=== PATIENT | male | born 1930 | race Caucasian/White ===

== ENCOUNTER 2017-06-16 11:20 | Inpatient (IN) | payer MEDICARE, OTHER ==
[2017-06-16 11:41] LABS: HEMATOCRIT 43.2 % (42.0-54.0); HEMOGLOBIN 14.7 g/dL (13.5-17.5); MCH 30.8 pg (26.0-34.0); MCV 90.4 fL (80.0-100.0); MEAN PLATELET VOLUME 11.3 fL (7.4-10.4); PLATELET COUNT 140 10x3/uL (130-400); RBC 4.78 10x6/uL (4.20-6.10); RDW 15.4 % (11.5-14.5); WBC 10.6 10x3/uL (4.8-10.8)
[2017-06-16 11:56] LABS: ALBUMIN 3.8 g/dL (3.4-5.0); ALKALINE PHOSPHATASE 85 U/L (46-116); ALT (SGPT) 19 U/L (10-68); BILIRUBIN - TOTAL 0.76 mg/dL (0.2-1.3); CALC OSMOLALITY 281 mosm/kg (275-300); CALCIUM 9.5 mg/dL (8.5-10.1); CARBON DIOXIDE 31.5 mmol/L (21.0-32.0); CHLORIDE - SERUM 103 mmol/L (98-107); GLUCOSE 115 mg/dL (74-106); PROTEIN - SERUM 7.4 g/dL (6.4-8.2); SODIUM 140 mmol/L (136-145); UREA NITROGEN 18 mg/dL (7-18); eGFR NON AFRICAN AMERICAN 75 mL/min (90-120)
[2017-06-16 11:57] LABS: INR 1.34 (0.85-1.17); PROTIME 16.5 SECONDS (11.6-15.0)
[2017-06-16 12:03] LABS: EOSINOPHILS 1 % (0-7); LYMPHOCYTES 81 % (15-50); MONOCYTES 1 % (2-11); NEUTROPHILS 17 % (40-80); PLATELET ESTIMATE NORMAL
--- NOTE | 2017-06-16 15:00 | NUR ---
RECEIVED TO ROOM 2231 FROM ER VIA STRETCHER. SL TO L AC. R SIDED WEAKNESS NOTED. STATES THAT WEAKNESS STARTED AROUND 10 THIS MORNING. KNIK. HEARING AIDES IN USE. AT BEDSIDE.
[2017-06-16 15:12] VITALS: BMI 27.2
[2017-06-16] MEDS ORDERED: K-DUR20 MEQ PO (15:32)
[2017-06-16] MEDS ORDERED: OMEPRAZOLE40 MG PO (15:32)
[2017-06-16] MEDS ORDERED: PRADAXA150 MG PO (15:32)
[2017-06-16] MEDS ORDERED: LANOXIN125 MCG PO (15:32)
[2017-06-16] MEDS ORDERED: GABAPENTIN100 MG PO (15:33)
[2017-06-16] MEDS ORDERED: MIRALAX17 GM PO (15:33)
[2017-06-16] MEDS ORDERED: HYDROCODON-ACE1 EAC7 PO (15:34)
[2017-06-16] MEDS ORDERED: SEROQUEL25 MG PO (15:34)
[2017-06-16] MEDS ORDERED: ACETAMINOPHEN500 M1 PO (15:34)
[2017-06-16] MEDS ORDERED: CYMBALTA30 MG PO (15:35)
[2017-06-16] MEDS ORDERED: MELATONIN 3 MG1 TAB PO (15:35)
[2017-06-16] MEDS ORDERED: ARICEPT5 MG PO (15:36)
[2017-06-16] MEDS ORDERED: CENTRUM SILVER1 TA1 PO (15:36)
[2017-06-16 15:40] VITALS: BP 161/54; BMI 27.2
--- NOTE | 2017-06-16 16:13 | NUR ---
MAKE UP GIRL SHOWING PACED 60 PER TECH.
[2017-06-16 18:02] VITALS: BP 161/54
--- NOTE | 2017-06-16 19:27 | NUR ---
SPOKE WITH DR KOCH REGARDING CONSULT.
[2017-06-16 20:00] VITALS: BP 138/52
--- NOTE | 2017-06-16 21:00 | NUR ---
PATIENT TRANSFERED FROM THE BED TO THE BEDSIDE COMMODE WITH ASSISTANCE FROM 2 CNAS. HE SAT ON THE BEDSIDE COMMODE FOR ABOUT 5 MINUTES THEN REQUESTED TO GO BACK TO BED. HE DID NOT HAVE A BOWEL MOVEMENT. HE TRANSFERED BACK TO BED WITH ASSISTANCE FROM 2 CNAS. IN ROOM.
--- NOTE | 2017-06-16 21:29 | NUR ---
BROUGHT SCDS IN ROOM, EDUCATED PATIENT ON THE SCDS, HE STATED "THOSE ARE NOTHING NEW TO ME. AND I DO NOT WANT THEM, I REFUSE." TOOK SCDS OUT OF THE ROOM. PATIENT STATED HE WANTS TO GO TO SLEEP. HE TURNED TO HIS RIGHT SIDE INDEPENDENTLY. HE DENIES NEEDS. BED ALARM ON.
[2017-06-17] VITALS: BP 121/50
[2017-06-17 04:00] VITALS: BP 128/51
[2017-06-17 06:46] LABS: APPEARANCE CLEAR (CLEAR); BILIRUBIN NEGATIVE (NEGATIVE); COLOR YELLOW (YELLOW); GLUCOSE NEGATIVE (NEGATIVE); KETONE SMALL mg/dL (NEGATIVE); NITRITE NEGATIVE (NEGATIVE); PROTEIN NEGATIVE (NEGATIVE); SPECIFIC GRAVITY 1.015 (1.005-1.020); UROBILINOGEN NORMAL (NORMAL)
--- NOTE | 2017-06-17 07:40 | NUR ---
SITTING ON BEDSIDE, KARELY ALARM ON, DENIES NEEDS, AT BEDSIDE, CALL LIGHT IN REACH, WILL CONTINUE TO MONITOR
[2017-06-17 11:16] VITALS: BMI 27.1
[2017-06-17 13:15] VITALS: BP 140/80
[2017-06-17 16:33] VITALS: BP 138/62
--- NOTE | 2017-06-17 17:44 | NUR ---
PATIENT RESTING IN BED WITH GUEST AT BEDSIDE. ASSISTED KOBE MIMS IN REPOSITIONING PT IN BED. PT DENIES OTHER NEEDS AT THIS TIME. BED IN LOWEST POSITION AND CALL LIGHT WITHIN REACH. ENCOURAGED THE PT TO CALL IF HE HAS NEEDS.
[2017-06-17 20:00] VITALS: BP 132/42
[2017-06-18 00:18] VITALS: BP 134/71
[2017-06-18 04:34] VITALS: BP 136/70
--- NOTE | 2017-06-18 07:15 | NUR ---
RECEIVED REPORT. ASSUMED CARE OF PATIENT. CALL LIGHT WITHIN REACH. RESTING IN BED WITH EYES OPEN. RIGHT SIDE WEAKNESS NOTED TO RIGHT UPPER AND LOWER EXTREMITIY. SPEECH CLEAR. AT BEDSIDE. PATIENT EXERCISING HANDS WITH STRESS BALL AT THIS TIME. NO DISTRESS. DENIES NEEDS.
[2017-06-18 08:43] VITALS: BP 165/68
--- NOTE | 2017-06-18 11:21 | NUR ---
22 GAUGE IV PLACED TO LEFT WRIST X 1 STICK. GOOD BLOOD RETURN, EASY FLUSH. TAPED, DATED AND SECURED. TOLERATED IV PLACEMENT WELL. 20 GAUGE IV REMOVED FROM LEFT AC. PATIENT WAS COMPLAINING OF PAIN. CATHETER TIP INTACT. NO BLEEDING FROM SITE. 2X2 GAUZE APPLIED AND SECURED WITH TAPE. PATIENT HAPPY NOW THAT IV HAS BEEN MOVED TO DIFFERENT LOCATION.
[2017-06-18 11:51] VITALS: BP 148/61
--- NOTE | 2017-06-18 12:26 | NUR ---
REHAB PRESCREEN: MR SCHMIDT WOULD BE A GOOD CANDIDATE FOR INPATIENT REHAB, HE DOES NEED AN A LITTLE MORE THERAPY TO QUALIFY AT THIS TIME. WE WILL FOLLOW UP WITH HIM IN A COUPLE DAYS AND REEVAL THEN. HE WILL ALSO NEED A OT EVAL. THANK YOU FOR THIS EVAL. JUANCARLOS PARIS LPN CLINICAL LIASION
--- NOTE | 2017-06-18 15:45 | NUR ---
ASSISTED TO PLACING PATIENT TO BED SIDE COMMODE. NO BM AFTER DRINKING ENTIRE BOTTLE OF MAGNESIUM CITRATE. ASSISTED PATIENT BACK TO BED.
[2017-06-18 16:49] VITALS: BP 139/60
--- NOTE | 2017-06-18 18:11 | NUR ---
PATIENT RESTING IN BED WITH EYES CLOSED. AT BEDSIDE. PATIENT IS EASILY AROUSED. DENIES NEEDS AT THIS TIME. CALL LIGHT WITHIN REACH. NO DISTRESS.
--- NOTE | 2017-06-18 19:40 | NUR ---
NOTIFIED BY RT THAT PT WAS LOOKING FOR THE NURSE ASSIGNED TO HIM. UPON ENTERING PT'S ROOM HE HAD DROPPED HIS HEARING AID ON THE FLOOR AND COULD NOT FIND HIS CALL LIGHT. I PUT PT'S HEARING AID X2 IN THE CASE PER PT'S REQUEST AND PUT HIS CALL LIGHT WITHIN REACH. PT DENIES OTHER NEEDS AT THIS TIME. BED IN LOWEST POSITION, CALL LIGHT WITHIN REACH, AND BED ALARM ON. ENCOURAGED THE PT TO CALL IF HE HAS NEEDS.
[2017-06-18 20:00] VITALS: BP 119/60
[2017-06-19] VITALS: BP 138/67
[2017-06-19 08:12] VITALS: BP 154/66
--- NOTE | 2017-06-19 09:05 | NUR ---
REC'D IN BED AWAKE AND ALERT. RESP EVEN AND UNLABORED WITH NO DISTRESS NOTED. CAN EXPRESS NEEDS AND WANTS. NO C/O NOTED OR VOICED. ASSESSMENT COMPLETED. AT BEDSIDE. V/L IN REACH
--- NOTE | 2017-06-19 09:40 | NUR ---
Patient Name: SANDOVAL SCHMIDT Admission Status: ER Accout number: [id number] Admission Date: 06-16-2017 : 1930 Admission Diagnosis: Attending: LIN GIPSON Current LOS: 3 Anticipated DC Date: 06-20-2017 Planned Disposition: Inpatient Rehab Primary Insurance: MEDICARE A & B Discharge Planning Comments: CM MET WITH PATIENT AND (GLENN) REGARDING D/C NEEDS AND PLANS. PATIENT WAS WORKING WITH PT AND ANSWERED QUESTIONS. PATIENTS STATED THEY HAVE NO STEPS OR STAIRS AT THEIR HOME. PATIENT IS INDEPENDENT WITH HIS CARE AND HAS A WALKER, SHOWER CHAIR, BS COMMODE, AND LIFT IN TUB AT HOME. PATIENTS HELPS HIM WITH HIS MEDICATION. PATIENTS PCP IS DR. CAMACHO AND PHARMACY IS [facility] [address]. PATIENT HAS A CONSULT FOR IP REHAB. CM WILL CONTINUE TO FOLLOW PATIENT WITH D/C NEEDS AND PLANS. PCP DR. ENGLISH ZHANG [facility] [address] [facility]- [phone] GLENN () [phone] Solar Energy Installation Manager: Sarai Wright Is the patient Alert and Oriented? Yes 0 * How many steps to enter\exit or inside your home? 0 0 * PCP DR. CAMACHO 0 * Pharmacy [facility] [address] [facility] 0 * Preadmission Environment Home with Family 0 * ADLs Independent 0 * Equipment Bedside Commode Shower Chair Walker 0 * Other Equipment LIFT IN BATHTUB 0 * List name and contact numbers for known caregivers / representatives who currently or will assist patient after discharge: GLENN () [phone] 0 * Community resources currently utilized None 0 * Additional services required to return to the preadmission environment? Yes 0 * Can the patient safely return to the preadmission environment? No 0 * Has this patient been hospitalized within the prior 30 days at any hospital? No 0 Grand Total: 0
[2017-06-19 12:34] VITALS: BP 131/54
--- NOTE | 2017-06-19 15:08 | NUR ---
NUTRITION F/U CHART REVIEWED. PT VISIT. SPOUSE AT BEDSIDE. ASSISTED SPOUSE ON MENU SELECTIONS FOR PT. CURRENTLY ~ 75% INTAKE AHA DIET. WILL CONTINUE TO PROVIDE DIET, MONITOR PO INTAKE. RD FOLLOWING
[2017-06-19 17:04] VITALS: BP 147/56
[2017-06-19] MEDS ORDERED: ASPIRIN325 MG PO (17:56)
--- NOTE | 2017-06-19 17:58 | NUR ---
OT NOTE: PT COMPLETED BED MOB WITH CGA. THANK YOU, DIANE HALL
--- NOTE | 2017-06-19 18:04 | NUR ---
PT WAS DISCHARGE DOWN TO REHAB AT THIS TIME WITH PERSONAL BELONGS VIA W/C. WAS IN STABLE CONDITION UPON DEPARTURE. C/L IN REACH AT BEDSIDE.
--- NOTE | 2017-06-20 16:42 | EC ---
PATIENT:SANDOVAL SCHMIDT DATE OF SERVICE: 06/16/17 SEX: M MEDICAL RECORD: [id number] DATE OF : 30 LOCATION:[facility] AGE OF PATIENT: 86 ADMISSION DATE: 06/16/17 REFERRING PHYSICIAN: INTERPRETING PHYSICIAN: RENATA GRAMAJO MD ECHOCARDIOGRAM REPORT ECHO CHARGES 4 ECHO COMPLETE CLINICAL DIAGNOSIS: CVA HX CAD/CABG/PACER/HTN ECHOCARDIOGRAPHIC MEASUREMENTS (adult normal given) AC root (d.<3.7cm) 3.9 cm LV Septum d (<1.2 cm> 1.6 cm Valve Excursion 1.3 cm LV Septum (systole) 1.8 cm Left Atria (s.<4.0cm> 3.7 cm LVPW d(<1.2cm) 1.3 cm RV (d.<2.3cm) 3.3 cm LVPW (sytole) 1.7 cm LV diastole(<5.6CM) 6.3 cm MV E-F(>70mm/sec) cm LV systole 4.6 cm LVOT Diameter 1.5 cm MV exc.(>10mm) 1.6 cm Est.ejection fraction (50-75%) % Pericardial Effusion N DOPPLER: LVIT cm/sec A 35.0 cm/sec E 97.0 cm/sec LA cm/sec RVSP 23 mmHg LVOT 93 cm/sec AOP1/2T m/s Asc. Ao 180 cm/sec RVOT 105 cm/sec RA cm/sec PA 147 cm/sec AV Gradient Peak 12.98mmHg AV Mean 6.23 mmHg AV Area 1.2 cm MV Gradient Peak 6.10 mmHg MV Mean 2.33 mmHg MV Area cm COMMENTS: Card Punching Machine Operator: Guanaco [employer] Technician: 1 Dr. Gramajo TAPE# PACS DATE OF SERVICE: 06/17/2017 DATE OF SERVICE: 06/17/2017 FINDINGS: 1. Left ventricular chamber size is within normal limits. Left ventricular systolic function is normal. Overall ejection fraction is estimated at 50%. 2. Left atrium, right atrium, and right ventricle chamber sizes are within normal limits. Left atrium measures 3.7 cm. 3. Valvular structures have normal structure and motion. ECHOCARDIOGRAM REPORT [id number] SANDOVAL SCHMIDT 4. Doppler interrogation reveals only trace to mild mitral regurgitation, trace to mild tricuspid regurgitation, no other valvular insufficiency or stenosis. Pulmonary systolic pressure is normal estimated at 23 mmHg. 5. No evidence of pericardial effusion or left ventricular thrombus. TRANSINT:[id number] Voice Confirmation ID: [id number] DOCUMENT ID: [id number] RENATA GRAMAJO MD at 1642 CC: [id number] DICTATION DATE: 06/18/17 1107 PIPED BUTTONHOLE MACHINE OPERATOR: 06/18/17 1437 DIS IN 06/19/17 [id number] [place] [address]
== END 2017-06-19 18:26 | DRG 65 ==
LOC: D.ER 11:20 → D.MS 14:36
PROVIDERS: Emergency Medicine; ADMIT Family Medicine
DX: I63.512 Cerebral infarction due to unspecified occlusion or stenosis of left middle cerebral artery (principal); G81.91 Hemiplegia, unspecified affecting right dominant side; G62.9 Polyneuropathy, unspecified; I10 Essential (primary) hypertension; I48.91 Unspecified atrial fibrillation; F03.90 Unspecified dementia, unspecified severity, without behavioral disturbance, psychotic disturbance, mood disturbance, and anxiety; K21.9 Gastro-esophageal reflux disease without esophagitis; K59.00 Constipation, unspecified; Z95.0 Presence of cardiac pacemaker; Z87.891 Personal history of nicotine dependence

== ENCOUNTER 2017-06-19 17:15 | Inpatient (IN) | payer MEDICARE, OTHER ==
[~2017-06-19] VITALS: Ht 182.9 cm; Wt 88.5 kg
[~2017-06-19 17:15] MED LIST: ACETAMINOPHEN500 M1 PO; ARICEPT5 MG PO; CENTRUM SILVER1 TA1 PO; CYMBALTA30 MG PO; GABAPENTIN100 MG PO; HYDROCODON-ACE1 EAC7 PO; K-DUR20 MEQ PO; LANOXIN125 MCG PO; MELATONIN 3 MG1 TAB PO; MIRALAX17 GM PO; OMEPRAZOLE40 MG PO; PRADAXA150 MG PO; SEROQUEL25 MG PO
[2017-06-19] MEDS ORDERED: ASPIRIN325 MG PO (17:56)
[2017-06-19 18:32] VITALS: BP 125/53; BMI 26.5
--- NOTE | 2017-06-19 19:50 | NUR ---
PT IN BED WITH HOB UP FOR COMFORT. RESTING QUIETLY. RIGHT SIDE WEAKNESS. COUNCIL, HEARING AIDS. NO O2. LEFT WRIST SL. PACEMAKER. CONTINENT. KARELY ALARM. BED IN LOWEST POSITION AND CALL LIGHT WITHIN REACH.
--- NOTE | 2017-06-19 20:00 | NUR ---
PT. IN BED LYING ON HIS LEFT SIDE. EYES CLOSED AND RESP. EVEN. CALL LIGHT WITHIN REACH.
[2017-06-19 20:34] VITALS: BP 128/53
--- NOTE | 2017-06-20 | NUR ---
PT IN BED WITH HOB UP FOR COMFORT. EYES CLOSED. CHEST RISING AND FALLING. BED IN LOWEST POSITION AND CALL LIGHT WITHIN REACH.
--- NOTE | 2017-06-20 02:31 | NUR ---
RESTING IN BED WITH EYES CLOSED. NO S/S OF DISTRESS OBSERVED. URINAL IN REACH. CALL LIGHT AND OVERBED TABLE IN REACH.
--- NOTE | 2017-06-20 04:00 | NUR ---
PT LYING IN BED WITH HOB UP FOR COMFORT. EYES CLOSED. RESP. EVEN. BED IN LOWEST POSITION AND CALL LIGHT WITHIN REACH.
[2017-06-20 05:05] LABS: BASOPHILS 0.3 % (0-2); EOSINOPHILS 3.8 % (0-7); HEMATOCRIT 40.3 % (42.0-54.0); HEMOGLOBIN 13.3 g/dL (13.5-17.5); IMMATURE GRANULOCYTES 0.2 % (0-5); LYMPHOCYTES 65.7 % (15-50); MCH 30.4 pg (26.0-34.0); MEAN PLATELET VOLUME 11.6 fL (7.4-10.4); MONOCYTES 6.9 % (2-11); NEUTROPHILS 23.1 % (40-80); PLATELET COUNT 140 10x3/uL (130-400); RBC 4.38 10x6/uL (4.20-6.10); RDW 15.7 % (11.5-14.5); WBC 6.5 10x3/uL (4.8-10.8)
[2017-06-20 05:55] LABS: CALC OSMOLALITY 286 mosm/kg (275-300); CALCIUM 9.3 mg/dL (8.5-10.1); CARBON DIOXIDE 29.9 mmol/L (21.0-32.0); CHLORIDE - SERUM 105 mmol/L (98-107); CREATININE - SERUM 0.8 mg/dL (0.6-1.3); GLUCOSE 107 mg/dL (74-106); POTASSIUM - SERUM 3.7 mmol/L (3.5-5.1); SODIUM 143 mmol/L (136-145); UREA NITROGEN 18 mg/dL (7-18); eGFR NON AFRICAN AMERICAN > 90 mL/min (90-120)
--- NOTE | 2017-06-20 07:31 | NUR ---
SITTING ON SIDE OF BED WITH PANTS PULLED DOWN. IN ROOM WITH PT. THEY WERE TRYING TO USE URINAL WHILE SITTING ON BEDSIDE. WHEN NURSE OFFERED TO ASST THEM PT BECAME VERY AGGITATED AND VERBALLY ABUSIVE TO NURSE. HE STARTED YELLING AND DOUBLED HIS FIST UP AND JACKELYN BACK AT NURSE. WHEN NURSE ATTEMPTED TO HELP PULL HIS PJ BOTTOMS UP AND REPOSITION PINK PAD UNDER HIM HE THREATENED NURSE VERBALLY STATING "WHEN I SAY I'M TIRED, I MEAN I'M TIRED". NURSE EXPLAINED TO PT AND THAT STAFF NEEDS PT COOPERATION TO GET HIM SAFELY UP IN BED TO SIT UP FOR BREAKFAST AND WE USE PINK PAD TO HELP SIT ADJUST HIS POSITION. HE STATED HE DID NOT CARE AND TO GET PAD AWAY FROM HIM. NURSE EXPLAINED TO PT AND HIS THAT PT USING THREATENING GESTURES AND THREATENING TO HARM STAFF WAS NOT ACCEPTABLE AND PT WOULD NOT BE ALLOWED TO STAY IF THIS HAPPENED. PT STATED UNDERSTANDING.
[2017-06-20 08:24] VITALS: BP 148/51
[2017-06-20 10:21] VITALS: Ht 182.9 cm; Wt 88.5 kg
--- NOTE | 2017-06-20 12:33 | NUR ---
SITTING IN W/C IN ROOM. IN ROOM WITH PT. HE REMAINS CONFUSED BUT NOT AGGRESSIVE AT PRESENT. HE HAS MADE STATEMENTS THIS MORNING SAYING "I HATE IT WHEN WOMEN TRY TO TELL ME WHAT TO DO".
--- NOTE | 2017-06-20 17:57 | NUR ---
SITTING UP EATING SUPPER. DENIES NEEDS. BED IN LOWEST POSITION.
--- NOTE | 2017-06-20 19:02 | NUR ---
RECIEVED UP IN BED WITH EYES OPEN. [place] AND DOESNT HAVE HEARING AIDES ON. ABLE TO UNDERSTAND IF I GET CLOSE UP AND SPEAK LOUD. DENIES ANY PAIN. CALL LIGHT AND OVERBED TABLE IN REACH.
--- NOTE | 2017-06-20 20:35 | NUR ---
RESTING IN BED WITH EYES OPEN. REQUESTED TO USE URINAL EARLIER AND WANTED TO SIT UP ON THE SIDE OF THE BED. ATTEMPTED TO ASK HIM IF HE COULD SIT UP IN BED. WHEN PT STARTED INTERRUPTING THIS NURSE AND THE AIDE. REFUSING TO LISTEN. EVENTUALLY GOT UP ON THE SIDE OF THE BED AND WAS UNABLE TO URINATE. TAKES MEDICATIONS WHOLE WOTHOUT DIFFICULTY. CALL LIGHT AND OVERBED TABLE IN REAC,
[2017-06-20 21:45] VITALS: BP 155/55
--- NOTE | 2017-06-21 00:23 | NUR ---
RESTING IN BED WITH EYES CLOSED. HOB ELEVATED AND O2@2 LITERS PER N/C IN PLACE. NO S/S OF DISTRESS OBSERVED. CALL LIGHT AND OVERBED TABLW IN REACH.
--- NOTE | 2017-06-21 00:29 | NUR ---
RESTING IN BED WITH EYES CLOSED AT THIS TIME. LAYING ON HIS BACK. BED IN FLAT POSITION PER PT PREFERENCE. CALL LIGHT AND OVERBED TABLE IN REACH. NO S/S OF DIDSTRESS OBSERVED.
--- NOTE | 2017-06-21 02:31 | NUR ---
RESTING IN BED WITH EYES CLOSED. N OS/S OF DISTRESS OBSERVED. URINAL IN REACH. CALL LIGHT AND OVERBED TABLE IN REACH.
--- NOTE | 2017-06-21 08:00 | NUR ---
SHIFT ASSMT COMPLETED.CL IN REACH. ATTENDING AT BEDSIDE.CL IN REACH.BREAKFAST GIVEN.
[2017-06-21 08:20] VITALS: BP 152/62
--- NOTE | 2017-06-21 12:00 | NUR ---
EATING LUNCH, ASSISTS WITH MEAL.
--- NOTE | 2017-06-21 14:20 | NUR ---
YELLING LOUDLY AT SPEECH THERAPY TO GET OUT.STATES HE DOES NOT WANT SPEECH THERAPY DUE TO FEELING IT DOES NOT HELP HIM AND FEELS IT IS STUPID.
--- NOTE | 2017-06-21 16:00 | NUR ---
RESTING QUIETLY.CL IN REACH.
--- NOTE | 2017-06-21 17:27 | NUR ---
CARE TEAM MEETING: PATIENT NEW TO UNIT AND WILL BE RA AT NEXT MEETING. DISCHARGE PLANS ARE FOR PATIENT TO RETURN HOME WITH HIS SPOUSE. WILL CONTINUE TO FOLLOW WITH PATIENT
--- NOTE | 2017-06-21 19:11 | NUR ---
RESTING IN BED WITH HANKERCHIEF COVERING EYES. EASILY AROUSES WITH TOUCH AND VERBAL STIMULI. CALL LIGHT AND OVERBED TABLE IN REACH.
[2017-06-21 19:52] VITALS: BP 144/53
--- NOTE | 2017-06-21 20:42 | NUR ---
RESTING IN BED WITH EYES CLOSED. EASILY AROUSES WITH VERBAL STIMULI. PLEASANT AND COOPERATIVE, VERY [place] AND NOT WEARING HEARING AIDS. CAN HEAR IF CLOSED TO EAR WHEN SPEAKING. TAKES MEDICATION WITHOUT DIFFICULTY. PAIN MEDICATION GIVEN EARLIER AND REPORTED IT MIKE SO MUCH BETTER AND DID'NT HURT WHEN HE USED IT. CALL LIGHT AND OVERBED TABLE IN REACH.
--- NOTE | 2017-06-21 22:34 | NUR ---
RESTING IN BED WITH EYES CLOSED. NO S.S OF DISTRESS OBSERVED.
[2017-06-22 07:53] VITALS: BP 139/60
--- NOTE | 2017-06-22 08:00 | NUR ---
RESTING QUIETLY IN BED. CALL LIGHT IN REACH. BED IN LOWEST POSITION.
[2017-06-22 19:30] VITALS: BP 124/53; BP 139/55
--- NOTE | 2017-06-22 19:30 | NUR ---
PT IN BED WITH HOB UP FOR COMFORT. RESTING QUIETLY. RIGHT SIDE WEAKNESS. [place], HEARING AIDS. NO O2. NO IV. PACEMAKER. CONTINENT. KARELY ALARM. BED IN LOWEST POSITION AND CALL LIGHT WITHIN REACH.
--- NOTE | 2017-06-22 21:00 | NUR ---
PATIENT BEING DIFFICULT AND UNCOOPERATIVE WITH NURSES Iliana DOYLE LPN AND MYRANDA RN WHO WERE ATTEMPTING TO ASSIST HIM UP TO W/C FOR TRIP TO [facility] VIA W/C. WOULD NOT FOLLOW INSTRUCTIONS REPORTEDLY MAKING HIM MORE LIKELY TO FALL. NURSES SOUGHT ME OUT TO SPEAK WITH PATIENT. TOLD HIM THAT HE NEEDED TO COOPERATE WITH THEM AND FOLLOW THEIR INSTRUCTIONS TO REMAIN SAFE. PATIENT BECAME BELLIGERENT, AND THEN DEFIANT AND STATED THAT HS JUST WOULDN'T GET UP FOR HIS BM AFTER ALL. TOLD HIM IF THAT IS HIS DECISION, THAT WILL BE FINE. PATIENT HAS BEEN REPORTED MULTIPLE TIMES BY MULTIPLE NURSES TO BED IRRITABLE AND UNCOOPERATIVE.
--- NOTE | 2017-06-22 21:00 | NUR ---
IN BED, AWAKE. NO COMPLAINTS AT THIS TIME.
--- NOTE | 2017-06-22 23:30 | NUR ---
PT LYING IN BED. EYES CLOSED. CHEST RISING AND FALLING. KARELY ALARM ON. BED IN LOWEST POSITIION AND CALL LIGHT WITHIN REACH.
--- NOTE | 2017-06-22 23:30 | NUR ---
PT LYING IN BED. EYES CLOSED. CHEST RISING AND FALLING. BED IN LOWEST POSITION AND CALL LIGHT WITHIN REACH.
--- NOTE | 2017-06-23 00:42 | NUR ---
PT FRONT OFFICE CLERK LIGHT, PT HAD ATTEMPTED TO USE URINAL PER SELF, PT VOIDED A LITTLE BIT ON SELF, ASSISTED PT WITH URINAL, PT VOIDED 250 MLS WITH NO DIFFICULTY, PAJAMA BOTTOMS CHANGED, TOP SHEET AND BLANKET CHANGED, PT DENIES FURTHER NEEDS, BED IN LOW POSITION, SIDE RAILS X 2, CALL LIGHT IN REACH, BED ALARM ON AND WORKING PROPERLY
--- NOTE | 2017-06-23 03:20 | NUR ---
PT IN BED WITH HOB UP FOR COMFORT. EYES CLOSED. CHEST RISING AND FALLING. BED IN LOWEST POSITION AND CALL LIGHT WITHIN REACH.
[2017-06-23 05:59] LABS: BASOPHILS 0.3 % (0-2); EOSINOPHILS 3.9 % (0-7); HEMOGLOBIN 12.9 g/dL (13.5-17.5); IMMATURE GRANULOCYTES 0.1 % (0-5); LYMPHOCYTES 69.3 % (15-50); MCH 30.5 pg (26.0-34.0); MCHC 33.1 g/dL (31.0-37.0); MCV 92.2 fL (80.0-100.0); MEAN PLATELET VOLUME 11.7 fL (7.4-10.4); MONOCYTES 4.6 % (2-11); NEUTROPHILS 21.8 % (40-80); PLATELET COUNT 134 10x3/uL (130-400); RBC 4.23 10x6/uL (4.20-6.10); RDW 15.7 % (11.5-14.5); WBC 6.7 10x3/uL (4.8-10.8)
[2017-06-23 06:08] LABS: CALC OSMOLALITY 287 mosm/kg (275-300); CALCIUM 9.2 mg/dL (8.5-10.1); CHLORIDE - SERUM 106 mmol/L (98-107); CREATININE - SERUM 0.8 mg/dL (0.6-1.3); GLUCOSE 117 mg/dL (74-106); POTASSIUM - SERUM 3.7 mmol/L (3.5-5.1); SODIUM 143 mmol/L (136-145); UREA NITROGEN 17 mg/dL (7-18); eGFR NON AFRICAN AMERICAN > 90 mL/min (90-120)
--- NOTE | 2017-06-23 06:27 | NUR ---
ASSISTED PT WITH URINAL IN BED.
[2017-06-23 08:54] VITALS: BP 145/102
[2017-06-23 21:16] VITALS: BP 158/68
--- NOTE | 2017-06-24 00:40 | NUR ---
RESTING QUIETLY IN BED, EYES CLOSED.
--- NOTE | 2017-06-24 03:02 | NUR ---
PT WET, CHANGE LINEN AND PANTS.
--- NOTE | 2017-06-24 03:07 | NUR ---
REST IN BED, CALL LIGHT IN REACH.
--- NOTE | 2017-06-24 04:44 | NUR ---
REST IN BED, EYE CLOSE,CALL LIGHT IN REACH.
--- NOTE | 2017-06-24 08:20 | NUR ---
PT VOICED THAT HE HAD A AWFUL NIGHT THAT HIS CALL LIGHT SOME HOW GOT IN THE FLOOR AND HE HAD A ACCIDENT IN THE BED AND THAT HE COULD NOT UNDERSTAND ONE WORD HIS NURSE SAID AND THAT HE USED ALL HIS ENERGY AND THAT HE WAS NOT THE SAME PERSON AFTER THIS INCIDENT I TRYED TO ASSIST PT WITH PUTTING HIS HEARING AID I WAS HELPING IT WAS UNCOMFORTABLE GOING IN HIS EAR AND HE GRUNTED AND BALLED UP HIS FIST I TRYED TO TELL THE PT THAT I KNEW HE WAS ANGRY AND I WAS SORRY BUT HE DID NOT NEED TO TAKE IT OUT ON ME
[2017-06-24 09:49] VITALS: BP 162/68
--- NOTE | 2017-06-24 10:30 | NUR ---
PT TAKEN TO THE BATHROOM TWO PERSON ASSIST PT STATES HE CAN STAND ON HIS OWN AND GOT UPSET BUT PT COULD NOT AND WAS A TWO PERSON MAX
--- NOTE | 2017-06-24 12:00 | NUR ---
EATING LUNCH. AT SIDE.
--- NOTE | 2017-06-24 17:35 | NUR ---
PT UP ON SIDE OF BED URINATING IN URINAL WITH WIFES ASSISTANCE WENT TO DOOR TO ASSIST SAID HE IS URINATING SAID SORRY YOUR LIGHT WAS ON AND SHUT THE DOOR
[2017-06-24 19:51] VITALS: BP 139/64
--- NOTE | 2017-06-24 20:32 | NUR ---
PT. IN BED WITH HOB SLIGHTLY ELEVATED. NO VOICED NEEDS AND HE HAS HIS CALL LIGHT WITHIN [facility].
--- NOTE | 2017-06-24 21:30 | NUR ---
PT IS RESTING QUIETLY IN BED WITH EYES CLOSED. NO DISTRESS NOTED. ASSISTED TO THE BATHROOM PRN. TRANSFERS WITH MOD ASSIST AND CUEING.
--- NOTE | 2017-06-25 00:17 | NUR ---
RESTING IN BED WITH EYES CLOSED. USING URINAL PRN.
--- NOTE | 2017-06-25 06:36 | NUR ---
PT RESTING IN BED WITH EYES OPEN. SPOUSE IN ROOM. HE REQUESTED TO MOVE TO A BED. BED CHANGED TO OTHER SIDE OF THE ROOM. NO ACUTE DISTRESS NOTED.
--- NOTE | 2017-06-25 08:15 | NUR ---
PT RESTING IN BED IN ROOM CALL LIGHT IN REACH
--- NOTE | 2017-06-25 10:00 | NUR ---
HEARING YELLING COMING FROM PT ROOM IN HALLS WENT TO DOOR ASK IF EVERTHING WAS ALL RIGHT DAUGHTER STATED YES ITS FINE I SAID JUST CHECKING YOU CAN HEAR YELLING IN THE CANDELARIO SHE STATED THANK YOU I KNOW YOU CAN HEAR IT IN THE CANDELARIO
[2017-06-25 10:35] VITALS: BP 167/68
--- NOTE | 2017-06-25 18:25 | NUR ---
PT RESTING IN BED EYES CLOSED AT BEDSIDE CALL LIGHT IN REACH WILL MONITER
[2017-06-25 19:30] VITALS: BP 146/56
--- NOTE | 2017-06-25 19:51 | NUR ---
PT. IN BED WITH HOB SLIGHTLY ELEVATED FOR COMFORT. NO VOICED NEEDS AND HIS CALL LIGHT IS WITHIN REACH.
--- NOTE | 2017-06-25 22:38 | NUR ---
PT ASSISTED TO THE BATHROOM WITH MOD ASSIST FOR ALL TRANSFERS, AND CUEING NEEDED. NO BM NOTED. LARGE AMOUNT OF GAS NOTED.
--- NOTE | 2017-06-26 00:15 | NUR ---
RESTING IN BED WITH EYES CLOSED.
--- NOTE | 2017-06-26 03:00 | NUR ---
PT RESTING IN BED. CALLED NURSE STATING HE WAS UPSET BECAUSE HIS LIGHTS WERE ALL TURNED OFF. BATHROOM LIGHT TURNED ON WITH DOOR CRACKED. PT VOICED SATISFACTION WITH THIS. NO FURTHER NEEDS VOICED.
--- NOTE | 2017-06-26 05:47 | NUR ---
PT RESTING IN BED WITH EYES CLOSED. AWOKE EASILY TO VERBAL STIMULI. TOLERATED AM MEDS WITHOUT DIFFICULTY. NO BM NOTED THIS SHIFT.
[2017-06-26 07:18] LABS: BASOPHILS 0.3 % (0-2); EOSINOPHILS 3.9 % (0-7); HEMATOCRIT 41.4 % (42.0-54.0); HEMOGLOBIN 13.7 g/dL (13.5-17.5); IMMATURE GRANULOCYTES 0.3 % (0-5); LYMPHOCYTES 68.1 % (15-50); MCH 30.6 pg (26.0-34.0); MCHC 33.1 g/dL (31.0-37.0); MCV 92.4 fL (80.0-100.0); MEAN PLATELET VOLUME 11.6 fL (7.4-10.4); MONOCYTES 5.9 % (2-11); NEUTROPHILS 21.5 % (40-80); PLATELET COUNT 152 10x3/uL (130-400); RBC 4.48 10x6/uL (4.20-6.10)
[2017-06-26 07:41] LABS: CALC OSMOLALITY 293 mosm/kg (275-300); CALCIUM 9.3 mg/dL (8.5-10.1); CARBON DIOXIDE 30.7 mmol/L (21.0-32.0); CHLORIDE - SERUM 107 mmol/L (98-107); CREATININE - SERUM 0.7 mg/dL (0.6-1.3); GLUCOSE 102 mg/dL (74-106); POTASSIUM - SERUM 3.7 mmol/L (3.5-5.1); SODIUM 147 mmol/L (136-145); UREA NITROGEN 19 mg/dL (7-18); eGFR NON AFRICAN AMERICAN > 90 mL/min (90-120)
[2017-06-26 07:55] VITALS: BP 168/60
--- NOTE | 2017-06-26 12:17 | NUR ---
SITTING UP W/C IN ROOM FOR LUNCH. IN ROOM WITH PT.
--- NOTE | 2017-06-26 13:44 | NUR ---
WALKING IN CANDELARIO WITH PAidan.
--- NOTE | 2017-06-26 18:45 | NUR ---
RESTING QUIETLY IN BED. CALL LIGHT IN REACH. BED IN LOWEST POSITION.
--- NOTE | 2017-06-26 19:21 | NUR ---
RECIOEVED LAYING IN BED WITH EYES CLOSED. NO S/S OF DISTRESS OBSERVED. CALL LIGHT AND OVERBED TABLE IN REACH.
[2017-06-26 20:37] VITALS: BP 129/72
--- NOTE | 2017-06-26 21:43 | NUR ---
RESTING IN BED WITH EYES CLOSED. NO S/S OF DISTRESS OBSERVED. CALL LIGHT AND OVERBED TABLE IN REACH.
--- NOTE | 2017-06-27 00:08 | NUR ---
RESTING IN BED WITH EYES CLOSED. NO S/S OF DISTRESS OBSERVED. CALL LIGHT AND OVERBED TABLE IN REACH.
--- NOTE | 2017-06-27 04:33 | NUR ---
RESTING IN BED WITH EYES CLOSED. NO S/S OF DISTRESS OBSERVED. CALL LIGHT AND OVERBED TABLE IN REACH.
--- NOTE | 2017-06-27 08:19 | NUR ---
SITTING UP IN W/C FOR BREAKFAST. IS IMPROVING ON STANDING UP TO TRANSFER BUT REMAINS VERY WEAK AND NEEDS ASST. RUE AND RLE WEAK.
[2017-06-27 09:00] VITALS: BP 172/73
--- NOTE | 2017-06-27 12:40 | NUR ---
Nutrition Follow Up: Pt is eating 89% meal avg on a regular diet. +BM 06/27/17. Labs and meds reviewed. Pt continues at low nutritional risk. Rec continue current diet. RD following.
--- NOTE | 2017-06-27 16:25 | NUR ---
RESTING QUIETLY IN BED. NO S/S DISTRESS. CALL LIGHT IN REACH. BED IN LOWEST POSITION
--- NOTE | 2017-06-27 17:09 | RHP ---
PATIENT: SANDOVAL SCHMIDT MEDICAL RECORD: [id number] ACCOUNT: [id number] LOCATION:[id number] : 30 ADMISSION DATE: 06/19/17 REHABILITATION HISTORY AND PHYSICAL EXAMINATION POST ADMISSION PHYSICIAN EXAMINATION Post-Admission Physical Examination and History and Physical DATE OF ADMISSION TO THE REHAB: 06/19/2017 ADMITTING DIAGNOSES: Left middle cerebral artery distribution infarction. HISTORY OF PRESENT ILLNESS: The patient is an 86-year-old gentleman, who presents secondary to a CVA/left middle cerebral artery distribution infarction. He presented to the acute hospitalist with right-sided weakness. He stated that when he woke up the morning of his acute hospital admit, he had loss of coordination on the right hand, his noted that he was dragging his right foot. He eventually came to the Emergency Room. He has got a history of chronic atrial fib and also pacemaker placement with defibrillator and chronic dementia. He uses a walker at home secondary to chronic peripheral neuropathy. He is severely hard of hearing. He has been evaluated by the neurologist and found to have a left middle cerebral artery distribution infarction, lacunar etiology most likely secondary to pure motor hemiparesis without any cortical or other signs or symptoms. He lives at home with his , and was moderately independent with use of a rolling walker for mobility and he was independent with his ADLs. He and his would like to return home, hopefully get him back to his prior level of functioning or better if there is any possibility of doing this. COMORBIDITIES: Includes CVA, chronic dementia, sick sinus syndrome, and pacemaker. PAST MEDICAL HISTORY: Significant for neuropathy, hypertension, pacemaker placement, atrial fib, melanoma, acid reflux, constipation, dementia. PAST SURGICAL HISTORY: Includes appendectomy, pacemaker placement, prostate surgery, open heart surgery, AAA repair, and carpal tunnel release. ALLERGIES: No known drug allergies. CURRENT MEDICATIONS: Include potassium 20 mEq daily, polyethylene glycol 17 grams in 8 ounces of water daily, Protonix 40 mg daily, digoxin 0.125 mg daily, aspirin 325 mg daily, Seroquel 25 mg at bedtime, multivitamin 1 tab daily, melatonin 3 mg at bedtime p.r.n., De Queen 5/325 one tab q.4 hours p.r.n., Neurontin 200 mg t.i.d., Cymbalta 30 mg at bedtime, Aricept 5 mg at bedtime, Pradaxa 150 mg b.i.d., and acetaminophen 500 mg every 4 hours. HABITS: No alcohol or tobacco use. FAMILY HISTORY: Noncontributory. SOCIAL HISTORY: The patient hopes to return back home and get back to his prior level of functioning with his . REVIEW OF SYSTEMS: HISTORY AND PHYSICAL [id number] SANDOVAL SCHMIDT GENERAL: He does complain of weakness. The patient denies cold, cough, or congestion. CARDIOVASCULAR: Denies chest pain. PHYSICAL EXAMINATION: VITAL SIGNS: Stable, afebrile. GENERAL: Elderly male, in no acute distress, alert upon exam. HEENT: Normocephalic and atraumatic. Mucosa moist. NECK: Supple. No lymphadenopathy. LUNGS: Clear in upper meza. HEART: Regular rate and rhythm. ABDOMEN: Benign. EXTREMITIES: No clubbing, cyanosis, or edema. NEUROLOGIC: He does have weakness noted on his right side. LABORATORY DATA: White count is 6.5, H&H 13 and 40, and platelet count was noted to be 140. Sodium is 143, potassium 3.7, BUN and creatinine of 18 and 0.8 and blood sugar is noted to be 107. ASSESSMENT: This is an 86-year-old gentleman admitted to the rehab with a working diagnosis of left middle cerebral artery infarction with right-sided involvement. The patient has potential to make improvement. We instituted the following multidisciplinary therapies including to, but not limited to physical, occupational, respiratory, speech, nutritional services, prosthetics and orthotics. Given his complex condition and risk for more complications, rehabilitation services cannot be provided at a lower level of care such as a usp facility. PLAN: 1. Admit to [facility] rehab for intensive inpatient therapy to include the following disciplines: A. Physical therapy to improve gait, all transfer skills and bed mobility to a modified independent level. B. Occupational therapy to improve activities of daily living to a modified independent level. C. Case management to assist with discharge planning and placement options. D. Nutrition to assist with nutritional needs. E. Rehabilitation nursing to assist in monitoring the patient's underlying medical conditions and to assist with any type of bowel or bladder management. 2. The patient's current medication and medical care will be continued. 3. The patient will be placed on standard fall precautions. 4. The patient's estimated length of stay is approximately 7-10 days. 5. Discuss this patient during care team staff meeting this week. TRANSINT:[id number] Voice Confirmation ID: [id number] DOCUMENT ID: [id number] MIGUEL notes whether there has been none or any medical/functional change since admission: - Has had some agressive behavior toward staff since admit to IRF. MIGUEL attests patient continues to be appropriate for IRF: - Continues to be appropriate. HISTORY AND PHYSICAL [id number] SANDOVAL SCHMIDT SCOTT MD at 1709 CC: [id number] DICTATION DATE: 06/20/17 0944 TELEPHONIC RN: 06/20/17 1141 ADM IN [place] [id number] [place] [id number]
--- NOTE | 2017-06-27 19:35 | NUR ---
RECIEVED UP IN B/R ON TOILET WITH STAFF AT HIS SIDE. PLEASANT AND TALKATIVE. DENIES ANY NEEDS.
[2017-06-27 19:40] VITALS: BP 172/73
--- NOTE | 2017-06-27 21:22 | NUR ---
RESTING IN BED WITH EYES CLOSED. NO S/S OF DISTRESS OBSERVED. CALL LIGHT AND OVERBED TABLE IN REACH. CONTINENT OF B/B. USES CALL LIGHT FOR ASSIST. REQUIRES 2 STAFF.
--- NOTE | 2017-06-28 01:37 | NUR ---
PT IN BED WITH HOB UP FOR COMFORT. EYES CLOSED. CHEST RISING AND FALLING. BED IN LOWEST POSITION AND CALL LIGHT WITHIN REACH.
--- NOTE | 2017-06-28 04:47 | NUR ---
PT LYING IN BED WITH HOB UP FOR COMFORT. RESTING QUIETLY. RESPIRATIONS ARE EVEN AND UNLABORED. BED IN LOWEST POSITION AND CALL LIGHT WIHTIN REACH.
[2017-06-28 06:46] LABS: BASOPHILS 0.1 % (0-2); EOSINOPHILS 2.6 % (0-7); HEMATOCRIT 41.5 % (42.0-54.0); HEMOGLOBIN 13.6 g/dL (13.5-17.5); IMMATURE GRANULOCYTES 0.2 % (0-5); LYMPHOCYTES 76.2 % (15-50); MCH 30.6 pg (26.0-34.0); MCHC 32.8 g/dL (31.0-37.0); MCV 93.5 fL (80.0-100.0); MEAN PLATELET VOLUME 11.6 fL (7.4-10.4); MONOCYTES 4.1 % (2-11); NEUTROPHILS 16.8 % (40-80); PLATELET COUNT 148 10x3/uL (130-400); RBC 4.44 10x6/uL (4.20-6.10); WBC 9.8 10x3/uL (4.8-10.8)
[2017-06-28 08:00] VITALS: BP 187/68
--- NOTE | 2017-06-28 08:00 | NUR ---
SHIFT ASSMT COMPLETED.CL IN REACH. AT BEDSIDE.
[2017-06-28 08:01] LABS: CALC OSMOLALITY 292 mosm/kg (275-300); CALCIUM 9.4 mg/dL (8.5-10.1); CARBON DIOXIDE 32.5 mmol/L (21.0-32.0); CHLORIDE - SERUM 107 mmol/L (98-107); CREATININE - SERUM 0.9 mg/dL (0.6-1.3); GLUCOSE 104 mg/dL (74-106); POTASSIUM - SERUM 4.1 mmol/L (3.5-5.1); SODIUM 146 mmol/L (136-145); UREA NITROGEN 17 mg/dL (7-18); eGFR NON AFRICAN AMERICAN 85 mL/min (90-120)
--- NOTE | 2017-06-28 12:00 | NUR ---
EATING LUNCH SITTING UP IN WC.
--- NOTE | 2017-06-28 16:00 | NUR ---
IN BED RESTING QUIETLY.
--- NOTE | 2017-06-28 16:15 | NUR ---
PATIENT ADMITTED TO REHAB FROM ACUTE FLOOR. PCP IS DR. CAMACHO. DME AT HOME IS WALKER, SHOWER CHAIR, BEDSIDE COMMODE AND LIFT IN THE TUB. PHARMACY IS [facility] [address] AND [facility]. CARE TEAM MEETING: SPOUSE AND DAUGHTER ATTENDED MEETING. THEREAPY WILL DO A HOME EVAL NEXT WEEK. WILL CONTINUE TO FOLLOW WITH PATIENT . TENATIVE DISCHARGE DATE IS 07/07/17
[2017-06-28 19:30] VITALS: BP 124/52
--- NOTE | 2017-06-28 19:30 | NUR ---
PT IS RESTING QUIETLY IN BED WITH EYES OPEN. ALERT AND ORIENTED X 3. VSS. ASSISTED TO THE BATHROOM WITH MOD TO MAX ASSIST WITH TRANSFERS, AND MAX CUEING REQUIRED. PT IS VERY [place]. SR'S ARE UP X 2 WHILE IN BED. CALL LIGHT AND BEDSIDE TABLE ARE WITHIN EASY REACH.
--- NOTE | 2017-06-28 21:44 | NUR ---
PT IS RESTING QUIETLY IN BED WITH EYES CLOSED. RESPS ARE EVEN AND UNLABORED. NO ACUTE DISTRESS NOTED.
--- NOTE | 2017-06-29 00:23 | NUR ---
RESTING IN BED WITH EYES CLOSED.
--- NOTE | 2017-06-29 02:35 | NUR ---
ASSISTED PATIENT TO TRANSFER TO W/C AND THEN TO BR COMMODE TO URINATE.
--- NOTE | 2017-06-29 04:25 | NUR ---
RESTING QUIETLY IN BED WITH EYES CLOSED. RESPS ARE EVEN AND UNLABORED. NO ACUTE DISTRESS NOTED.
--- NOTE | 2017-06-29 06:29 | NUR ---
PT ASSISTED TO THE BATHROOM WITH MOD ASSIST. VOIDED WITHOUT DIFFICULTY. NO FURTHER NEEDS VOICED.
[2017-06-29 07:56] VITALS: BP 145/65
--- NOTE | 2017-06-29 08:00 | NUR ---
SHIFT ASSMT COMPLETED.CL IN REACH. AT BEDSIDE.
--- NOTE | 2017-06-29 12:00 | NUR ---
SITTING UP EATING LUNCH.
--- NOTE | 2017-06-29 16:00 | NUR ---
TIRES EASILY.REQUIRED REST BREAK DURING NOON THERAPY AND HAD TO LAY DOWN.RESTING QUIETLY.
--- NOTE | 2017-06-29 20:00 | NUR ---
PT IN BED WITH HOB UP FOR COMFORT. RESTING QUIETLY. NO O2. NO IV. RIGHT SIDE WEAKNESS. VERY [place], BILATERAL HEARING AIDS. BED IN LOWEST POSITION AND CALL LIGHT WITHIN REACH. KARELY ALARM ON.
[2017-06-29 20:30] VITALS: BP 132/79
--- NOTE | 2017-06-30 | NUR ---
PT LYING IN BED WITH HOB UP FOR COMFORT. EYES CLOSED. CHEST RISING AND FALLING. BED IN LOWEST POSITION AND CALL LIGHT WITHIN REACH.
--- NOTE | 2017-06-30 04:00 | NUR ---
PT LYING IN BED WITH HOB UP FOR COMFORT. EYES CLOSED. RESPIRATIONS EVEN AND UNLABORED. BED IN LOWEST PSOITION AND CALL LIGHT WITHIN REACH.
--- NOTE | 2017-06-30 04:30 | NUR ---
RESTING IN BED, EYES CLOSED. APPEARS COMFORTABLE.
--- NOTE | 2017-06-30 07:02 | NUR ---
RESTING QUIETLY IN BED. CALL LIGHT IN REACH. BED IN LOWEST POSITION.
--- NOTE | 2017-06-30 10:18 | NUR ---
SITTING UP IN W/C IN ROOM TALKING TO .
[2017-06-30 10:43] VITALS: BP 151/63
--- NOTE | 2017-06-30 12:50 | NUR ---
SPOKE WITH PATIENT SPOUSE THIS AM AND GAVE HER A LIST OF SNF. SHE AND HER DAUGHTER WILL VISIT THEM AND DECIDE ON AFCAILITY IF ONE NEEDED. HOME EVAL PLANNED FOR Monday07/04/17. WILL CONTINUE TO FOLLOW WITH PATIENT.
--- NOTE | 2017-06-30 18:22 | NUR ---
SITTING UP IN W/C EATING SUPPER. IN ROOM WITH PT. HE DENIES PROBLEMS WITH INJECTION TO BACK THIS AFTERNOON WITH DR. ARENAS.
--- NOTE | 2017-06-30 19:04 | NUR ---
RECIEVED LAYING IN BED WITH EYES CLOSED. NO S/S OF DISTRESS OBSERVED. SIDE RAILS UP X2. CALL LIGHT AND OVERBED TABLE IN REACH.
--- NOTE | 2017-06-30 21:36 | NUR ---
RESTING IN BED WITH EYES CLOSED. EASILY AROUSES WITH VERBAL STIMULI. CONTINENT OF B/B. USES CALL LIGHT FOR ASSIST. REQUIRES MOD ASSIST TO TRANSFER. VERY [place]. DOES NOT WEAR HIS HEARING AIDES AT NIGHT. ABLE TO HEAR IF CLOSE AND SPEAK INTO HIS EAR. CALL LIGHT AND OVERBED TABLE IN REACH.
[2017-06-30 22:38] VITALS: BP 128/81
--- NOTE | 2017-07-01 01:35 | NUR ---
RESTING IN BED WITH EYES CLOSED AT THIS TIME. CALL LIGHT AND OVERBED TABLE IN REACH.
--- NOTE | 2017-07-01 04:10 | NUR ---
RESTING IN BED WITH EYES CLOSED. NO S/S OF DISTRESS OBSERVED. CALL LIGHT AND OVERBED TABLE IN REACH. BED ALARM IN PLACE AND FUNCTIONING PROPERLY.
--- NOTE | 2017-07-01 05:43 | NUR ---
RESTING IN BED WITH EYES CLOSED. EASILY AROUSES WITH VERBAL STIMULI. TAKES MEDS WHOLE WITHOUT DIFFICULTY. CALL LIGHT AND OVERBED TABLE IN REACH.
--- NOTE | 2017-07-01 08:05 | NUR ---
SITTING UP IN W/C IN ROOM. IN ROOM WITH PT. HE IS ALERT AND ORIENTED. STATES HE FEEL BETTER AFTER INJECTION INTO HIS BACK YESTERDAY.
[2017-07-01 09:08] VITALS: BP 152/73
--- NOTE | 2017-07-01 12:41 | NUR ---
SITTING UP FOR LUNCH. DENIES INCREASED PAIN. IS DOING BETTER AT STANDING TO TRANSFER. STILL WEAK ON RT SIDE.
--- NOTE | 2017-07-01 19:20 | NUR ---
RECIEVED UP IN BED WITH EYES CLOSED. CHECKED AND REQUIRES COMPLETE BED CHANGE. EASILY AROUSES. PLEASANT AND COOPERATIVE. DENIES ANY PAIN. CONSUMED 8 0Z OF COLD THICKEN WATER. ALSO ATE THE LEMON PIE ON HER TRAY. REQUIRED MAX ASSIST. STATING "I CAN'T SEE THE PIE". HOB ELEVATED PER PT REQUEST. CALL LIGHT AND OVERBED TABLE IN REACH.
--- NOTE | 2017-07-01 19:20 | NUR ---
RECIEVED UP IN BED WITH EYES OPEN AND TV ON. PLEASANT AND TALKATIVE. CALL LIGHT AND OVERBED TABLE IN REACH.
[2017-07-01 20:45] VITALS: BP 145/59
--- NOTE | 2017-07-01 21:00 | NUR ---
RESTING IN BED WITH EYES CLOSED. NO S/S OF DISTRESS OBSERVED. CALL LIGHT AND OVERBED TABLE IN REACH.
--- NOTE | 2017-07-01 21:09 | NUR ---
RESTING IN BED WITH EYES OPEN AND TV ON. REQUESTED TO GO TO TOILET. REQUIRES MOD ASSIST. CALL LIGHT AND OVERBED TABLE IN REACH.
--- NOTE | 2017-07-02 00:58 | NUR ---
RESTING IN BED WITH EYES CLOSED,. NO S/S OF DISTRESS OBSERVED. CALL LIGHT AND OVERBE DTABLE IN REACH.
--- NOTE | 2017-07-02 04:23 | NUR ---
RESTING IN BED WITH EYES CLOSED. NO S/S OF DISTRESS OBSERVED. CALL LIGHT AND OVERBED TABLE IN REACH.
[2017-07-02 09:14] VITALS: BP 174/65
--- NOTE | 2017-07-02 09:37 | NUR ---
LAYING DOWN IN BED RESTING. IN ROOM WITH PT. HE DENIES NEEDS.
--- NOTE | 2017-07-02 12:01 | NUR ---
SITTING UP IN W/C IN ROOM. IN ROOM VISITING WITH PT.
--- NOTE | 2017-07-02 15:01 | NUR ---
LAYING DOWN IN BED WATCHING TV. DENIES NEEDS. IN ROOM WITH PT.
[2017-07-02 19:39] VITALS: BP 110/75
--- NOTE | 2017-07-02 19:50 | NUR ---
RECIEVED LAYING IN BED WITH CALL LIGHT ON. PLEASANT AND TALKATIVE. ASSISTED TO TOILET AND BACK TO BED. CALL LIGHT IN REACH.
--- NOTE | 2017-07-02 21:49 | NUR ---
RESTING IN BED WITH EYES CLOSED. NO S/S OF DISTRESS OBSERVED. CALL LIGHT AND OVERBED TABLE IN REACH.
--- NOTE | 2017-07-03 05:16 | NUR ---
RESTING IN BED WITH EYES CLOSED. NO S/S OF DISTRESS OBSERVEED. CALL LIGHT AND OVERBED TABLE IN REACH.
[2017-07-03 05:59] LABS: BASOPHILS 0.3 % (0-2); EOSINOPHILS 1.3 % (0-7); HEMOGLOBIN 13.7 g/dL (13.5-17.5); IMMATURE GRANULOCYTES 1.1 % (0-5); LYMPHOCYTES 61.7 % (15-50); MCH 30.6 pg (26.0-34.0); MCHC 32.6 g/dL (31.0-37.0); MEAN PLATELET VOLUME 12.3 fL (7.4-10.4); MONOCYTES 5.6 % (2-11); PLATELET COUNT 148 10x3/uL (130-400); RBC 4.47 10x6/uL (4.20-6.10); RDW 16.2 % (11.5-14.5); WBC 7.4 10x3/uL (4.8-10.8)
[2017-07-03 06:21] LABS: CALC OSMOLALITY 289 mosm/kg (275-300); CALCIUM 9.1 mg/dL (8.5-10.1); CARBON DIOXIDE 27.9 mmol/L (21.0-32.0); CHLORIDE - SERUM 107 mmol/L (98-107); CREATININE - SERUM 0.9 mg/dL (0.6-1.3); GLUCOSE 105 mg/dL (74-106); POTASSIUM - SERUM 3.9 mmol/L (3.5-5.1); SODIUM 144 mmol/L (136-145); UREA NITROGEN 21 mg/dL (7-18); eGFR NON AFRICAN AMERICAN 85 mL/min (90-120)
[2017-07-03 08:00] VITALS: BP 151/71
--- NOTE | 2017-07-03 08:00 | NUR ---
SHIFT ASSMT COMPLETED.DENIES NEEDS.
--- NOTE | 2017-07-03 12:00 | NUR ---
SITTING UP EATING LUNCH.CL IN REACH.
--- NOTE | 2017-07-03 16:00 | NUR ---
RESTING QUIETLY.CL IN REACH.
--- NOTE | 2017-07-03 19:41 | NUR ---
RECIEVED LAYING IN BED WITH EYES CLOSED. EASILY AROUSES WITH VERBAL STIMULI. PLEASANT AND COOPERATIVE. CALL LIGHT AND OVERBED TABLE IN REACH.
[2017-07-03 20:14] VITALS: BP 125/55
--- NOTE | 2017-07-03 21:28 | NUR ---
ASSISTED TO TOILET AND BACK TO BED. PLEASANT AND COOPERATIVE. CONTINUES TO HAVE WEAKNESS TO BILATERAL LEGS AND MAKES SEVERAL ATTEMPTS TO RISE BEFORE HE CAN STAND UP AND TRANSFER. DROPS ONTO TOILET SEAT. REEDUCATED ON THE DANGERS OF DROPPING HIMSELF ON TOILET SEAT. CALL LIGHT AND OVERBED TABLE IN REACH.
--- NOTE | 2017-07-04 00:51 | NUR ---
RESTING IN BED WITH EYES CLOSED. NO S/S OF DISTRESS OBSERVED. CALL LIGHT AND OVERBED TABLE IN REACH.
--- NOTE | 2017-07-04 02:31 | NUR ---
ASSISTED TO TOILET. MADE SEVERAL ATTEMPTS TO STAND BEFORE HE WAS ABLE TO GET IN W/C. ALSO, SEVERAL MORE ATTEMPTS TO GET ON TOILET. THIS IS A CHANGE FROM PREVIOUS NIGHTS WHEN THIS NURSE WORKED. C/O BEING WEAK. ASSISTED BACK TO BED WITH NO OTHER C/O VOICED.
--- NOTE | 2017-07-04 03:32 | NUR ---
MAG CITRATE GIVEN ON EARLIER SHIFT. NO RESULTS AT THIS TIME. HOWEVER DOES HAVE LOTS OF FLATUS.
--- NOTE | 2017-07-04 08:00 | NUR ---
SHIFT ASSMT COMPLETED.DENIES NEEDS.BREAKFAST SET-UP PROVIDED. ASSISTS WITH CARE.
[2017-07-04 08:54] VITALS: BP 160/67
--- NOTE | 2017-07-04 12:00 | NUR ---
SITTING UP EATING LUNCH.CL IN REACH.
--- NOTE | 2017-07-04 13:09 | NUR ---
Nutrition Follow Up: Pt stated that his appetite is good and he is happy with the meals. Pt said that we can know that he is happy "because I have not called and cussed anyone out yet." Pt is eating 89% meal avg on a regular diet. +BM 07/03/17. Labs reviewed. Meds noted including MV. Pt continues at low nutritional risk. Rec continue current diet. RD following.
--- NOTE | 2017-07-04 20:00 | NUR ---
PT IS RESTING IN BED WITH EYES CLOSED. AWOKE EASILY TO VERBAL STIMULI. VOICED COMPLAINT OF BACK PAIN LEVEL OF 5 AT THIS TIME. DENIES NEED TO VOID AT THIS TIME. LEFT CHEST PACEMAKER NOTED. SR'S ARE UP X 2 IN BED. CALL LIGHT AND BEDSIDE TABLE ARE WITHIN EASY REACH.
[2017-07-04 21:37] VITALS: BP 128/82
--- NOTE | 2017-07-04 22:37 | NUR ---
PT IS RESTING IN BED WITH EYES OPEN. DENIES ANY PAIN AT THIS TIME. STATES HE IS READY TO GO TO SLEEP.
--- NOTE | 2017-07-04 23:45 | NUR ---
RESTING IN BED WITH EYES CLOSED.
--- NOTE | 2017-07-05 00:35 | NUR ---
IN BED, EYES CLOSED. SNORING. NO DISTRESS EVIDENT.
--- NOTE | 2017-07-05 01:55 | NUR ---
RESTING IN BED WITH EYES CLOSED.
--- NOTE | 2017-07-05 04:45 | NUR ---
PT ASSISTED TO THE BATHROOM WITH MOD ASSIST FOR TRANSFERS, AND CUEING TO FOLLOW SAFETY INSTRUCTIONS. NO FURTHER NEEDS VOICED.
[2017-07-05 08:00] VITALS: BP 139/51
--- NOTE | 2017-07-05 08:00 | NUR ---
SHIFT ASSMT COMPLETED.
[2017-07-05 08:29] LABS: CALC OSMOLALITY 289 mosm/kg (275-300); CALCIUM 9.2 mg/dL (8.5-10.1); CARBON DIOXIDE 32.7 mmol/L (21.0-32.0); CHLORIDE - SERUM 105 mmol/L (98-107); CREATININE - SERUM 0.8 mg/dL (0.6-1.3); GLUCOSE 125 mg/dL (74-106); POTASSIUM - SERUM 4.2 mmol/L (3.5-5.1); SODIUM 144 mmol/L (136-145); UREA NITROGEN 19 mg/dL (7-18); eGFR NON AFRICAN AMERICAN > 90 mL/min (90-120)
--- NOTE | 2017-07-05 12:00 | NUR ---
BACK FROM HOME VISIT.EATING LUNCH.
--- NOTE | 2017-07-05 16:53 | NUR ---
CARE TEAM MEETING: SPOUSE AND DAUGHTER ATTENDED MEETING. DISCHARGE PLANS ARE FOR PATIENT OT RETURN HOME WITH HOME HEALTH. PER SPOUSE REQUEST AN ORDER HAS BEEN FAXED TO [facility] FOR A WHEELCHAIR. WILL CONTINUE TO FOLLOW WITH PATIENT .
--- NOTE | 2017-07-05 19:55 | NUR ---
PT. IN BED WITH HOB SLIGHTLY ELEVATED AND WATCHING TV. ASSESSMENT COMPLETED. NO VOICED NEEDS AT THIS TIME. CALL LIGHT WITHIN REACH.
[2017-07-05 20:15] VITALS: BP 137/55
--- NOTE | 2017-07-05 23:09 | NUR ---
PT. IN BED WITH HOB FLAT. EYES CLOSED AND RESP. DEEP AND EVEN. CALL LIGHT WITHIN REACH.
--- NOTE | 2017-07-06 03:10 | NUR ---
PT. IN BED WITH HOB FLAT. EYES CLOSED AND RESP. DEEP AND EVEN. CALL LIGHT REMAINS WITHIN REACH.
[2017-07-06 08:45] VITALS: BP 152/60
--- NOTE | 2017-07-06 09:08 | NUR ---
SITTING UP IN W/C IN ROOM TALKING TO .
--- NOTE | 2017-07-06 12:22 | NUR ---
SITTING UP FOR LUNCH. IN ROOM.
--- NOTE | 2017-07-06 12:34 | NUR ---
ORDER SENT TO [facility] FOR A WHEELCHAIR AND WILL BE DELIVERED TO PATIENT ROOM
--- NOTE | 2017-07-06 19:16 | NUR ---
SHIFT REPORT COMPLETED.
[2017-07-06 20:40] VITALS: BP 136/66
--- NOTE | 2017-07-06 21:50 | NUR ---
REST IN BED, HOB 10 DEGREE, CALL LIGHT IN REACH.
--- NOTE | 2017-07-07 00:50 | NUR ---
IN BED, EYES CLOSED. APPEARS COMFORTABLE.
--- NOTE | 2017-07-07 02:45 | NUR ---
ASSISTED PT TO BATHROOM AND BACK TO BED.
--- NOTE | 2017-07-07 04:23 | NUR ---
REST IN BED, EYE CLOSE. CALL LIGHT IN REACH.
[2017-07-07 08:41] VITALS: BP 150/63
--- NOTE | 2017-07-07 09:14 | NUR ---
PATIENT IS DISCHARGING HOME TODAY WITH FAMILY. [facility] AT HOME WILL FOLLOW WITH PATIENT. [facility] HAS DELIVERED A WHEELCHAIR. DR. CAMACHO 07/12/17 @ 10:40. PATIENT CHOICE FORM FOR HOME HEALTH AND [facility] FORM SIGNED, EXPLAINED AND FILED IN CHART. ORDERS HAVE BEEN FAXED WITH CONFORMATION RECIEVED
--- NOTE | 2017-07-07 10:10 | NUR ---
PT AM MEDS ADMINISTERED. PT DENIES NEEDS. WCTM.
--- NOTE | 2017-07-07 11:30 | NUR ---
PT DISCHARGE INSTRUCTIONS REVIEWED. PT ESCORTED TO VEHICLE VIA WHEELCHAIR. PT ASSISTED INTO VEHICLE, SEATBELT IN PLACE.
--- NOTE | 2017-09-06 13:18 | DS ---
PATIENT:SANDOVAL SCHMIDT :30 MEDICAL RECORD: [id number] DISCHARGE SUMMARY ADMISSION DATE: 06/19/17 DISCHARGE DATE: 07/07/17 This is a discharge dated 07/07/2017 from the inpatient rehab. PRIMARY DIAGNOSIS: Decreased functional mobility and ability to provide activities of daily living status post cerebrovascular accident. SECONDARY DIAGNOSES: 1. Neuropathy. 2. Reflux. 3. Atrial fibrillation. 4. Hypertension. 5. Dementia. 6. Hypokalemia. 7. Hypernatremia. 8. Right-sided weakness. 9. Back pain. CONSULTS THIS HOSPITALIZATION: Neurosurgery with Dr. Bo. PROCEDURES THIS HOSPITALIZATION Epidural steroid injection of L4-L5 with Dr. Bo. HOSPITAL COURSE: Full H&P is located elsewhere on the chart on this 86-year-old male who was admitted to inpatient rehab for physical therapy and occupational therapy to improve gait, transfer skills, bed mobility, and activities of daily living to a modified independent level. He was evaluated by PT and OT and their plans of care were followed. He required [facility] care for observation and assessment and medication administration. Lab was monitored and electrolytes were managed by protocol. He remained on appropriate home medication. Dr. Bo was consulted for complaints of back pain. He underwent an epidural steroid injection of L4-L5. He was seen by speech therapy as well and their recommendations were followed. He was cooperative with therapies, progressing towards goals. Case management was involved for discharge planning. He was able to walk at least 80 feet prior to discharge. He was considered stable for discharge on 07/07/2017. DISCHARGE MEDICATIONS: As per discharge medication reconciliation. DISCHARGE DISPOSITION: The patient is discharged home. He will continue his current diet and level of activity and will have home health for continued PT and OT and will follow up with primary care and consultants as directed. At least 30 minutes was spent in this discharge activity. TRANSINT:[id number] Voice Confirmation ID: [id number] DOCUMENT ID: [id number] Dictated By: CORI GRIJALVA I have interviewed/examined the above patient and agree with these documented findings. DISCHARGE SUMMARY REPORT [id number] SANDOVAL SCHMIDT SCOTT MD at 1318 at 0939 CC: [id number] DICTATION DATE: 09/02/17 1128 CRYPTOLOGIC SUPPORT SPECIALIST: 09/02/17 1416 DIS IN 07/07/17 [facility] [address] [place] [address]
== END 2017-07-07 12:57 | disposition home or self-care (01) | DRG 65 ==
LOC: D.REHAB 17:15
PROVIDERS: ADMIT Emergency Medicine
DX: I63.512 Cerebral infarction due to unspecified occlusion or stenosis of left middle cerebral artery (principal); I69.351 Hemiplegia and hemiparesis following cerebral infarction affecting right dominant side; F03.90 Unspecified dementia, unspecified severity, without behavioral disturbance, psychotic disturbance, mood disturbance, and anxiety; I49.5 Sick sinus syndrome; Z95.0 Presence of cardiac pacemaker; I48.2 Chronic atrial fibrillation; G62.9 Polyneuropathy, unspecified; I10 Essential (primary) hypertension; K21.9 Gastro-esophageal reflux disease without esophagitis; R40.2363 Coma scale, best motor response, obeys commands, at hospital admission; R40.2143 Coma scale, eyes open, spontaneous, at hospital admission; R40.2243 Coma scale, best verbal response, confused conversation, at hospital admission

== ENCOUNTER 2018-05-30 07:38 | Inpatient (IN) | payer MEDICARE, OTHER ==
[~2018-05-30] VITALS: Ht 182.9 cm; Wt 90.7 kg
--- NOTE | ~2018-05-30 | HP ---
PATIENT: SANDOVAL SCHMIDT MEDICAL RECORD: [id number] ACCOUNT: [id number] LOCATION:[id number] : 30 ADMISSION DATE: 05/31/18 PCP: GUILLERMINA CAMACHO MD HISTORY AND PHYSICAL EXAMINATION REASON FOR ADMISSION: Right knee pain, unable to stand. HISTORY OF PRESENT ILLNESS: The patient is an 87-year-old male who incurred a left hemispheric CVA with right hemiparesis on May of 2017. He went through rehab and since that time, he has been unable to fully walk any distance. He can transfer. He apparently slipped at home about 10 days ago, striking his right knee on the floor. He had immediate pain and swelling. It got a little bit better, but over the last 2 days, it has gotten worse, he is unable to stand due to the pain. His said he goes into spasms in his quadriceps. He was in the Emergency Room, he was unable to stand this morning while trying to use the urinal. PAST MEDICAL HISTORY: Chronic atrial fibrillation; sick sinus syndrome with pacemaker placement; left hemispheric CVA in 2017 with right hemiparesis; chronic peripheral neuropathy; essential hypertension; history of melanoma on his chest, removed; GERD; constipation; post-stroke dementia. PAST SURGICAL HISTORY: Appendectomy, pacemaker defibrillator placement, TURP, AAA repair, carpal tunnel repair. ALLERGIES: None known. FAMILY HISTORY: Positive for cardiovascular disease in both parents. SOCIAL HISTORY: He is a former smoker and alcohol drinker. He is . He and his moved here from [place] to be close to their daughter. He does not use any recreational drugs. REVIEW OF SYSTEMS: GENERAL: No recent fever or fatigue. HEENT: No recent visual change, sinus congestion, or sore throat. Chronic hearing difficulty, wearing hearing aids. RESPIRATORY: No severe cough. CARDIAC: No exertional chest pain, claudication, or increasing edema. GASTROINTESTINAL: No nausea or vomiting. GENITOURINARY: Has nocturia twice nightly. ENDOCRINE: Denies polyuria, polydipsia, heat or cold intolerance. NEUROLOGIC: No history of stroke. As mentioned above with right hemiparesis. He has moderate expressive aphasia and depends on his for most of his ADLs. No history of seizures. He does have history of numbness in his legs, he has had evaluation previously and is idiopathic. INTEGUMENT: No rash or itching. PSYCHIATRIC: Denies depress mood. PHYSICAL EXAMINATION: VITAL SIGNS: Blood pressure 196/69 with a temperature of 97.5, pulse of 60, respirations of 18. GENERAL: The patient is alert, but disoriented to person, place, and time. HEENT: Normocephalic. Eyes are clear. Pupils are reactive. Ear canals show hearing aids. HISTORY AND PHYSICAL [id number] [place] NECK: Supple, without bruits or masses. CHEST: Distant breath sounds without wheeze or rales. HEART: Irregular rate without gallop. ABDOMEN: Soft, obese, and nontender. No organomegaly. GENITOURINARY: Circumcised. No testicular masses appreciated. EXTREMITIES: He has 1+ pretibial edema bilaterally in both legs. His right knee is swollen, but not warm. It is painful to any flexion or extension. Sensation decreased in both feet dorsum and plantar. Reflexes are 1+ symmetric in lower extremities. He has weakness in the right leg, 1+ versus 3+ in the left. Gait is not tested due to pain. LABORATORY DATA: White count 5700 with an H&H of 13.2 and 39.1, normal diff, platelet count 124,000. BMP is normal. Glucose is 130 nonfasting. Liver functions are normal. X-rays of the knee, hip and femur showed degenerative changes, but no obvious fracture. ASSESSMENT: 1. Fall with right knee effusion, unable to stand. 2. Remote left hemispheric CVA with right hemiparesis and gait disturbance. 3. Chronic atrial fibrillation. 4. History of aortic aneurysm repair. 5. History of melanoma. 6. Post-stroke dementia, mild expressive aphasia, insomnia, chronic constipation. PLAN: The patient will be admitted for CT of the knee due to his pacemaker, he did not have MRI. Orthopedic consult. Further workup to follow. TRANSINT:[id number] Voice Confirmation ID: [id number] DOCUMENT ID: [id number] GUILLERMINA CAMACHO MD at 0736 CC: [id number] DICTATION DATE: 05/30/18 1325 AIRCRAFT FUSELAGE FRAMER: 05/30/18 1421 [place] [address]
--- NOTE | ~2018-05-30 | MORECARE ---
CASE MANAGEMENT DISCHARGE SUMMARY PATIENT: SANDOVAL SCHMIDT UNIT: [id number] ADM DATE: 05/31/18 AGE: 87 : 30 SEX: M ROOM/BED: D.2234 AUTHOR: KRISTAL,DOC PHYSICIAN: REFERRING PHYSICIAN: GUILLERMINA RODGERS MD DATE OF SERVICE: 06/04/18 Discharge Plan Patient Name: SANDOVAL SCHMIDT Facility: [facility]:[place] : 1930 Planned Disposition: Inpatient Rehab Anticipated Discharge Date: 06/02/18 Discharge Date: 06/02/2018 Expected LOS: 2 Initial Reviewer: [email or web address] Initial Review Date: 05/30/2018 Generated: 06/04/18 2:46 pm Comments DCP- Discharge Planning Updated by [email or web address]: Ximena Powell on 06/02/18 3:[address] LATE ENTRY 1405 CM MET WITH THE PATIENT AND HIS AT THE BEDSIDE. [facility] PATIENT ACKNOWLEDGED CM AND FELL ASLEEP. HIS INFORMED CM OF PLAN AND THAT HE HAD MET CRIITERIA. THEY WERE AWAITING DISCHARGE PAPERWORK AND TRANSPORTATION ARRANGEMENTS. PATIENT WAS TO HAVE A BOWEL MOVEMENT BEFORE BEING DISCHARGED. CM HAD SPOKEN WITH THE NURSE AND GIVEN HER A FACE SHEET AND DISCHARGE SUMMARY TO FACE WITH HIS DISCHARGE PAPERWORK AND MARS. CM ADVISED HER TO CALL REPORT WHEN READY. SHE HAS CONTACT INFORMATION AND FAX NUMBER SHE HAD SPOKEN WITH [facility]. DCP- Discharge Planning Updated by [email or web address]: Alexusmoar Barrera on 06/01/18 3:[address] Received a call from Ambreen with [facility] and they can accept him tomorrow and will provide transportation. I informed patient's daughter (she's in the room and states she will tell her mom) and called Dr. Rodgers's office and spoke with Prema. Prema states she will tell Dr. Rodgers. CM will continue to follow and assist with discharge planning/needs. DCP- Discharge Planning Updated by [email or web address]: Alexus Bruce on 06/01/18 10:[address] Updated clinical sent to Ambreen. I called Ambreen and informed that he is more cooperative today. She will review clinical. CM will continue to follow and assist with discharge planning/needs. DCP- Discharge Planning Updated by [email or web address]: Alexus Bruce on 05/31/18 7:[address] Patient Name: SANDOVAL SCHMIDT Admission Status: ER Accout number: [id number] Admission Date: 05-30-2018 : 1930 Admission Diagnosis: Attending: GUILLERMINA RODGERS Current LOS: 1 Anticipated DC Date: Planned Disposition: Inpatient Rehab Primary Insurance: MEDICARE A & B Discharge Planning Comments: Met with patient, his and daughter. Patient sleeps through the discharge planning. He lives with his . He is at [facility]. His states she helps him with almost everything. States that they have Superior come out "on occasion" to help. States her and her daughter would like him to go to [facility] if he qualifies for rehab prior to going home. CM will continue to follow and assist with discharge planning/needs. Snow Remover: Alexus Barrera DCPIA - Discharge Planning Initial Assessment Updated by [email or web address]: Alexus Barrera on 05/31/18 8:43 am * Is the patient Alert and Oriented? No * How many steps to enter\\exit or inside your home? 0/0 * PCP Dr. Rodgers * Pharmacy [facility] * Preadmission Environment Assisted Living * Facility Name [facility] * ADLs Partial Dependent * Partial ADLs (Assistance needed) Ambulation Bathing Dressing Medication Management Transfers * Equipment Bedside Commode Other Shower Chair Walker Wheelchair * Other Equipment Scooter * List name and contact numbers for known caregivers / representatives who currently or will assist patient after discharge: Rylie - - [phone] Savitakarel Harper DTR - [phone] * Verbal permission to speak to the caregivers and representatives has been obtained from the patient. N/A * Community resources currently utilized Assisted Living Private Duty Care * Please name any agencies selected above. [facility] * Additional services required to return to the preadmission environment? Yes * Can the patient safely return to the preadmission environment? No * Has this patient been hospitalized within the prior 30 days at any hospital? No Coverage Notice Reviewer: [id number] - Ximena Powell Notice Issued Date-Time: 06/02/2018 14:20 Notice Type: IM Discharge Notice Notice Delivered To: Family Member Relationship to Patient: Spouse Typo Machine Operator Name: RYLIE Delivery Method: HAND - Hand Delivered Genesis Days: Prior Verbal Notification: Recipient Understood Notice: Yes Recipient Signature: Yes Med Rec Note Co-signed by Attending: Coverage Notice Comment: CM DISCUSSED WITH PATIENT' SPOUSE HE IS HARD OF HEARING AND SLEEPY. HE NODDED HIS HEAD IN AGREEMENT TO SPEAK WITH HIS THEN FELL ASLEEP. Last DP export: 06/02/18 3:21 Patient Name: SANDOVAL SCHMIDT Page [id number] at 1346 All edits/amendments must be made on the electronic document DICTATION DATE: 06/04/18 1346 MAGISTERIAL DISTRICT JUDGE: BRISA 06/04/18 1346 RPT#: [id number] DC DATE:06/02/18 STATUS: DIS IN [facility] [address] [place] [address] END OF REPORT
--- NOTE | ~2018-05-30 | MORECARE ---
CASE MANAGEMENT DISCHARGE SUMMARY PATIENT: SANDOVAL SCHMIDT UNIT: [id number] ADM DATE: 05/31/18 AGE: 87 : 30 SEX: M ROOM/BED: D.2234 AUTHOR: ILDA GIRALDO PHYSICIAN: REFERRING PHYSICIAN: GUILLERMINA RODGERS MD DATE OF SERVICE: 06/02/18 Discharge Plan Patient Name: SANDOVAL SCHMIDT Facility: [facility]:[place] : 1930 Planned Disposition: Inpatient Rehab Anticipated Discharge Date: 06/02/18 Discharge Date: Expected LOS: 2 Initial Reviewer: [email or web address] Initial Review Date: 05/30/2018 Generated: 06/02/18 5:02 pm Comments DCP- Discharge Planning Updated by [email or web address]: Alexus Barrera on 06/01/18 3:[address] Received a call from Ambreen with [facility] and they can accept him tomorrow and will provide transportation. I informed patient's daughter (she's in the room and states she will tell her mom) and called Dr. Rodgers's office and spoke with Prema. Prema states she will tell Dr. Rodgers. CM will continue to follow and assist with discharge planning/needs. DCP- Discharge Planning Updated by [email or web address]: Alexus Bruce on 06/01/18 10:[address] Updated clinical sent to Ambreen. I called Ambreen and informed that he is more cooperative today. She will review clinical. CM will continue to follow and assist with discharge planning/needs. DCP- Discharge Planning Updated by [email or web address]: Alexus Bruce on 05/31/18 7:[address] Patient Name: SANDOVAL SCHMIDT Admission Status: ER Accout number: [id number] Admission Date: 05-30-2018 : 1930 Admission Diagnosis: Attending: GUILLERMINA RODGERS Current LOS: 1 Anticipated DC Date: Planned Disposition: Inpatient Rehab Primary Insurance: MEDICARE A & B Discharge Planning Comments: Met with patient, his and daughter. Patient sleeps through the discharge planning. He lives with his . He is at [facility] assisted living. His states she helps him with almost everything. States that they have Superior come out "on occasion" to help. States her and her daughter would like [facility] to [facility] if he qualifies for rehab prior to going home. CM will continue to follow and assist with discharge planning/needs. Urban Forester: Alexus Barrera DCPIA - Discharge Planning Initial Assessment Updated by [email or web address]: Alexus Barrera on 05/31/18 8:43 am * Is the patient Alert and Oriented? No * How many steps to enter\\exit or inside your home? 0/0 * PCP Dr. Rodgers * Pharmacy [facility] * Preadmission Environment Assisted Living * Facility Name [facility] * ADLs Partial Dependent * Partial ADLs (Assistance needed) Ambulation Bathing Dressing Medication Management Transfers * Equipment Bedside Commode Other Shower Chair Walker Wheelchair * Other Equipment Scooter * List name and contact numbers for known caregivers / representatives who currently or will assist patient after discharge: Rylie - [facility] - [phone] Savita Harper [facility] - [phone] * Verbal permission to speak to the caregivers and representatives has been obtained from the patient. N/A * Community resources currently utilized Assisted Living Private Duty Care * Please name any agencies selected above. [facility] * Additional services required to return to the preadmission environment? Yes * Can the patient safely return to the preadmission environment? No * Has this patient been hospitalized within the prior 30 days at any hospital? No Last DP export: 06/01/18 3:12 Patient Name: SANDOVAL SCHMIDT Page [id number] at 1602 All edits/amendments must be made on the electronic document DICTATION DATE: 06/02/18 160 LOGGER: BRISA 06/02/18 160 RPT#: [id number] DC DATE: STATUS: ADM IN [facility] [address] [facility] [place] [address] END OF REPORT
--- NOTE | ~2018-05-30 | MORECARE ---
CASE MANAGEMENT DISCHARGE SUMMARY PATIENT: SANDOVAL SCHMIDT UNIT: [id number] ADM DATE: 05/31/18 AGE: 87 : 30 SEX: M ROOM/BED: D.2234 AUTHOR: KRISTAL,DOC PHYSICIAN: REFERRING PHYSICIAN: GUILLERMINA RODGERS MD DATE OF SERVICE: 06/02/18 Discharge Plan Patient Name: SANDOVAL SCHMIDT Facility: [facility]:[place] : 1930 Planned Disposition: Inpatient Rehab Anticipated Discharge Date: 06/02/18 Discharge Date: Expected LOS: 2 Initial Reviewer: [email or web address] Initial Review Date: 05/30/2018 Generated: 06/02/18 5:21 pm Comments DCP- Discharge Planning Updated by [email or web address]: Ximena Powell on 06/02/18 3:[address] LATE ENTRY 1405 CM MET WITH THE PATIENT AND HIS AT THE BEDSIDE. [facility] PATIENT ACKNOWLEDGED CM AND FELL ASLEEP. HIS INFORMED CM OF PLAN AND THAT HE HAD MET CRIITERIA. THEY WERE AWAITING DISCHARGE PAPERWORK AND TRANSPORTATION ARRANGEMENTS. PATIENT WAS TO HAVE A BOWEL MOVEMENT BEFORE BEING DISCHARGED. CM HAD SPOKEN WITH THE NURSE AND GIVEN HER A FACE SHEET AND DISCHARGE SUMMARY TO FACE WITH HIS DISCHARGE PAPERWORK AND MARS. CM ADVISED HER TO CALL REPORT WHEN READY. SHE HAS CONTACT INFORMATION AND FAX NUMBER SHE HAD SPOKEN WITH [facility]. DCP- Discharge Planning Updated by [email or web address]: Alexus Bruce on 06/01/18 3:[address] Received a call from Ambreen with [facility] and they can accept him tomorrow and will provide transportation. I informed patient's daughter (she's in the room and states she will tell her mom) and called Dr. Rodgers's office and spoke with Prema. Prema states she will tell Dr. Rodgers. CM will continue to follow and assist with discharge planning/needs. DCP- Discharge Planning Updated by [email or web address]: Alexus Bruce on 06/01/18 10:[address] Updated clinical sent to Ambreen. I called Ambreen and informed that he is more cooperative today. She will review clinical. CM will continue to follow and assist with discharge planning/needs. DCP- Discharge Planning Updated by [email or web address]: Alexus Bruce on 05/31/18 7:[address] Patient Name: SANDOVAL SCHMIDT Admission Status: ER Accout number: [id number] Admission Date: 05-30-2018 : 1930 Admission Diagnosis: Attending: GUILLERMINA RODGERS Current LOS: 1 Anticipated DC Date: Planned Disposition: Inpatient Rehab Primary Insurance: MEDICARE A & B Discharge Planning Comments: Met with patient, his and daughter. Patient sleeps through the discharge planning. He lives with his . He is at [facility]. His states she helps him with almost everything. States that they have Superior come out "on occasion" to help. States her and her daughter would like him to go to [facility] if he qualifies for rehab prior to going home. CM will continue to follow and assist with discharge planning/needs. Powerhouse Mechanic Supervisor: Alexus Barrera DCPIA - Discharge Planning Initial Assessment Updated by [id number]: Alexus Barrera on 05/31/18 8:43 am * Is the patient Alert and Oriented? No * How many steps to enter\\exit or inside your home? 0/0 * PCP Dr. Rodgers * Pharmacy [facility] * Preadmission Environment Assisted Living * Facility Name [facility] * ADLs Partial Dependent * Partial ADLs (Assistance needed) Ambulation Bathing Dressing Medication Management Transfers * Equipment Bedside Commode Other Shower Chair Walker Wheelchair * Other Equipment Scooter * List name and contact numbers for known caregivers / representatives who currently or will assist patient after discharge: Rylie - - [phone] Savita Harper [facility] - [phone] * Verbal permission to speak to the caregivers and representatives has been obtained from the patient. N/A * Community resources currently utilized Assisted Living Private Duty Care * Please name any agencies selected above. [facility] * Additional services required to return to the preadmission environment? Yes * Can the patient safely return to the preadmission environment? No * Has this patient been hospitalized within the prior 30 days at any hospital? No Last DP export: 06/02/18 3:02 Patient Name: SANDOVAL SCHMIDT Page 72040 at 1621 All edits/amendments must be made on the electronic document DICTATION DATE: 06/02/181620 TAXICAB COORDINATOR: BRISA 06/02/181620 RPT#: [id number] IN DATE: STATUS: ADM IN [facility] [address] [place] [address] END OF REPORT
--- NOTE | ~2018-05-30 | MORECARE ---
CASE MANAGEMENT DISCHARGE SUMMARY PATIENT: SANDOVAL SCHMIDT UNIT: [id number] ADM DATE: 05/31/18 AGE: 87 : 30 SEX: M ROOM/BED: D.2234 AUTHOR: ILDA GIRALDO PHYSICIAN: REFERRING PHYSICIAN: GUILLERMINA RODGERS MD DATE OF SERVICE: 06/01/18 Discharge Plan Patient Name: SANDOVAL SCHMIDT Facility: [facility]:[place] : 1930 Planned Disposition: Inpatient Rehab Anticipated Discharge Date: Discharge Date: Expected LOS: Initial Reviewer: [email or web address] Initial Review Date: 05/30/2018 Generated: 06/01/18 12:21 pm Comments DCP- Discharge Planning Updated by [email or web address]: Alexus Barrera on 06/01/18 10:[address] Updated clinical sent to Ambreen. I called Ambreen and informed that he is more cooperative today. She will review clinical. CM will continue to follow and assist with discharge planning/needs. DCP- Discharge Planning Updated by [email or web address]: Alexus Barrera on 05/31/18 7:[address] Patient Name: SANDOVAL SCHMIDT Admission Status: ER Accout number: [id number] Admission Date: 05-30-2018 : 1930 Admission Diagnosis: Attending: GUILLERMINA RODGERS Current LOS: 1 Anticipated DC Date: Planned Disposition: Inpatient Rehab Primary Insurance: MEDICARE A & B Discharge Planning Comments: Met with patient, his and daughter. Patient sleeps through the discharge planning. He lives with his . He is at [facility]. His states she helps him with almost everything. States that they have Superior come out "on occasion" to help. States her and her daughter would like him to go to [facility] if he qualifies for rehab prior to going home. CM will continue to follow and assist with discharge planning/needs. Weed Sprayer: Alexus Barrera DCPIA - Discharge Planning Initial Assessment Updated by [email or web address]: Alexus Barrera on 05/31/18 8:43 am * Is the patient Alert and Oriented? No * How many steps to enter\\exit or inside your home? 0/0 * PCP Dr. Rodgers * Pharmacy [facility] [address] * Preadmission Environment Assisted Living * Facility Name [facility] * ADLs Partial Dependent * Partial ADLs (Assistance needed) Ambulation Bathing Dressing Medication Management Transfers * Equipment Bedside Commode Other Shower Chair Walker Wheelchair * Other Equipment Scooter * List name and contact numbers for known caregivers / representatives who currently or will assist patient after discharge: Rylie - - [phone] Savita Harper [facility] - [phone] * Verbal permission to speak to the caregivers and representatives has been obtained from the patient. N/A * Community resources currently utilized Assisted Living Private Duty Care * Please name any agencies selected above. [facility] * Additional services required to return to the preadmission environment? Yes * Can the patient safely return to the preadmission environment? No * Has this patient been hospitalized within the prior 30 days at any hospital? No Last DP export: 05/31/18 10:32 Patient Name: SANDOVAL SCHMIDT Page 48385 at 1121 All edits/amendments must be made on the electronic document DICTATION DATE: 06/01/18 112 COMMUNICATIONS TOWER CLIMBER: BRISA 06/01/18 112 RPT#: [id number] DC DATE: STATUS: ADM IN [facility] [address] [place] [address] END OF REPORT
--- NOTE | ~2018-05-30 | MORECARE ---
CASE MANAGEMENT DISCHARGE SUMMARY PATIENT: SANDOVAL SCHMIDT UNIT: [id number] ADM DATE: 05/31/18 AGE: 87 : 30 SEX: M ROOM/BED: D.2234 AUTHOR: ILDA GIRALDO PHYSICIAN: REFERRING PHYSICIAN: GUILLERMINA RODGERS MD DATE OF SERVICE: 06/01/18 Discharge Plan Patient Name: SANDOVAL SCHMIDT Facility: [facility]:[place] : 1930 Planned Disposition: Inpatient Rehab Anticipated Discharge Date: Discharge Date: Expected LOS: Initial Reviewer: [email or web address] Initial Review Date: 05/30/2018 Generated: 06/01/18 5:12 pm Comments DCP- Discharge Planning Updated by [email or web address]: Alexus Ganalban on 06/01/18 3:[address] Received a call from Ambreen with [facility] and they can accept him tomorrow and will provide transportation. I informed patient's daughter (she's in the room and states she will tell her mom) and called Dr. Rodgers's office and spoke with Prema. Prema states she will tell Dr. Rodgers. CM will continue to follow and assist with discharge planning/needs. DCP- Discharge Planning Updated by [email or web address]: Alexus Ganalban on 06/01/18 10:[address] Updated clinical sent to Ambreen. I called Ambreen and informed that he is more cooperative today. She will review clinical. CM will continue to follow and assist with discharge planning/needs. DCP- Discharge Planning Updated by [email or web address]: Alexus Ganalban on 05/31/18 7:[address] Patient Name: SANDOVAL SCHMIDT Admission Status: ER Accout number: [id number] Admission Date: 05-30-2018 : 1930 Admission Diagnosis: Attending: GUILLERMINA RODGERS Current LOS: 1 Anticipated DC Date: Planned Disposition: Inpatient Rehab Primary Insurance: MEDICARE A & B Discharge Planning Comments: Met with patient, his and daughter. Patient sleeps through the discharge planning. He lives with his . He is at [facility] assisted living. His states she helps him with almost everything. States that they have Superior come out "on occasion" to help. States her and her daughter would like him to go to [facility] if he qualifies for rehab prior to going home. CM will continue to follow and assist with discharge planning/needs. Electric Hoist Operator: Alexus Bruce DCPIA - Discharge Planning Initial Assessment Updated by [email or web address]: Alexus Barrera on 05/31/18 8:43 am * Is the patient Alert and Oriented? No * How many steps to enter\\exit or inside your home? 0/0 * PCP Dr. Rodgers * Pharmacy [facility] * Preadmission Environment Assisted Living * Facility Name [facility] * ADLs Partial Dependent * Partial ADLs (Assistance needed) Ambulation Bathing Dressing Medication Management Transfers * Equipment Bedside Commode Other Shower Chair Walker Wheelchair * Other Equipment Scooter * List name and contact numbers for known caregivers / representatives who currently or will assist patient after discharge: Rylie - [facility] - [phone] Savita Harper [facility] - [phone] * Verbal permission to speak to the caregivers and representatives has been obtained from the patient. N/A * Community resources currently utilized Assisted Living Private Duty Care * Please name any agencies selected above. [facility] * Additional services required to return to the preadmission environment? Yes * Can the patient safely return to the preadmission environment? No * Has this patient been hospitalized within the prior 30 days at any hospital? No Last DP export: 06/01/18 10:21 Patient Name: SANDOVAL SCHMIDT Page [id number] at 1612 All edits/amendments must be made on the electronic document DICTATION DATE: 06/01/181610 COMMERCIAL DRONE SOFTWARE DEVELOPER: BRISA 06/01/181610 RPT#: [id number] DC DATE: STATUS: ADM IN [facility] [address] [place] [address] END OF REPORT
[~2018-05-30 07:38] MED LIST changes: +ASPIRIN325 MG PO
[2018-05-30 09:35] LABS: HEMATOCRIT 39.1 % (42.0-54.0); HEMOGLOBIN 13.2 g/dL (13.5-17.5); MCH 30.7 pg (26.0-34.0); MCHC 33.8 g/dL (31.0-37.0); MCV 90.9 fL (80.0-100.0); PLATELET COUNT 124 10x3/uL (130-400); WBC 5.7 10x3/uL (4.8-10.8)
[2018-05-30 09:46] LABS: ALBUMIN 3.5 g/dL (3.4-5.0); ALKALINE PHOSPHATASE 65 U/L (46-116); ALT (SGPT) 24 U/L (10-68); CALC OSMOLALITY 287 mosm/kg (275-300); CARBON DIOXIDE 33.7 mmol/L (21.0-32.0); CHLORIDE - SERUM 104 mmol/L (98-107); DIGOXIN 0.51 ng/mL (0.90-2.00); GLUCOSE 130 mg/dL (74-106); POTASSIUM - SERUM 3.8 mmol/L (3.5-5.1); PROTEIN - SERUM 6.8 g/dL (6.4-8.2); SODIUM 143 mmol/L (136-145); UREA NITROGEN 16 mg/dL (7-18); eGFR NON AFRICAN AMERICAN 75 mL/min (90-120)
[2018-05-30 11:11] LABS: EOSINOPHILS 1 % (0-7); LYMPHOCYTES 53 % (15-50); MONOCYTES 13 % (2-11); NEUTROPHILS 33 % (40-80); PLATELET ESTIMATE NORMAL
[2018-05-30 11:30] VITALS: BP 198/109
[2018-05-30 11:36] VITALS: BP 175/85
[2018-05-30 15:30] VITALS: BP 149/68
[2018-05-30 16:36] LABS: APPEARANCE CLEAR (CLEAR); BILIRUBIN NEGATIVE (NEGATIVE); COLOR YELLOW (YELLOW); GLUCOSE NEGATIVE (NEGATIVE); KETONE NEGATIVE (NEGATIVE); NITRITE NEGATIVE (NEGATIVE); PROTEIN NEGATIVE (NEGATIVE); SPECIFIC GRAVITY 1.025 (1.005-1.020); UROBILINOGEN NORMAL (NORMAL)
[2018-05-30 20:00] VITALS: BP 104/71
[2018-05-31 10:20] VITALS: BP 142/52
[2018-05-31 15:04] VITALS: Ht 182.9 cm; Wt 90.7 kg
[2018-05-31 15:20] VITALS: BP 153/59
[2018-05-31 21:37] VITALS: BP 141/54
[2018-06-01 06:08] VITALS: BP 133/47
[2018-06-01 08:06] VITALS: BP 155/61
[2018-06-01 12:52] VITALS: BP 156/65
[2018-06-01 17:20] VITALS: BP 152/62
[2018-06-01 20:56] VITALS: BP 150/54
[2018-06-02 00:51] VITALS: BP 148/63
[2018-06-02 05:09] VITALS: BP 164/61
[2018-06-02] MEDS ORDERED: Aricept PO (07:32)
[2018-06-02] MEDS ORDERED: COLACE100 MG PO (07:33)
[2018-06-02 12:49] VITALS: BP 152/57
[2018-06-02 17:47] VITALS: BP 142/59
== END 2018-06-02 18:07 | DRG 563 ==
LOC: D.ER 07:38 → D.EDHOLD 07:46 → OBSVTIME 09:21 → D.MS 10:14
PROVIDERS: Emergency Medicine; Family Medicine
DX: S83.91XA Sprain of unspecified site of right knee, initial encounter (principal); I69.354 Hemiplegia and hemiparesis following cerebral infarction affecting left non-dominant side; W19.XXXA Unspecified fall, initial encounter; M25.551 Pain in right hip; I69.320 Aphasia following cerebral infarction; F03.90 Unspecified dementia, unspecified severity, without behavioral disturbance, psychotic disturbance, mood disturbance, and anxiety; I48.2 Chronic atrial fibrillation; Z66 Do not resuscitate; I10 Essential (primary) hypertension; K21.9 Gastro-esophageal reflux disease without esophagitis; G47.00 Insomnia, unspecified; K59.00 Constipation, unspecified; Z95.0 Presence of cardiac pacemaker